=== PATIENT | female | born 1995 | race Hispanic/Latino ===

== ENCOUNTER 2017-12-11 00:29 | Emergency (ER) | payer OTHER, MEDICAID, SELFPAY ==
--- NOTE | 2017-12-11 00:32 | DI.US.S_ITS ---
PROCEDURE: US PELVIC COMPLETE INDICATIONS: Bleeding during TECHNIQUE: Real-time scanning was performed of the pelvic organs, with image documentation. Additional endovaginal scanning was necessary due to incomplete visualization of the adnexal and endometrial structures by transabdominal scanning. COMPARISON: None. FINDINGS: Transabdominal scanning: Limited scanning through the kidneys shows no hydronephrosis. No pathologic free abdominal or pelvic fluid. Endovaginal scanning: Uterus: Uterus is normal in size at 7.4 x 3.4 x 5.2 cm. echogenic material seen within the endometrial complex and small amount of fluid. No definite intrauterine is identified. No internal vascularity on color Doppler interrogation but there is peripheral flow demonstrated. Ovaries: Normal left ovary measuring 2.1 x 2.6 x 2.0 cm. Corpus luteum cyst involves the right ovary measuring 1.7 x 1.3 x 1.4 cm. IMPRESSION: 1. No definite intrauterine is identified. 2. Echogenic material noted within the endometrial complex as well as small amount of complex endometrial fluid. Although findings are likely related to blood products from a spontaneous in progress, an underlying mass cannot entirely be excluded and followup ultrasound is recommended if clinically indicated. 3. Probable corpus luteal luteal cyst on the right is present and otherwise no adnexal masses or free fluid is seen. Although there are no secondary signs to suggest ectopic, occult ectopic cannot be excluded and close clinical correlation with serial beta-hCGs and/or followup sonographic imaging is recommended. Note: These findings are concordant with the preliminary interpretation. Dictated by: Chaka ZHU Interpreted: Evin Barnett MD on 12/11/2017 at 8:48 Approved by: Evin Barnett M.D. on 12/11/2017 at 11:04
[2017-12-11 00:39] VITALS: BP 135/90; PULSE 88; RESP 18; TEMP 36.8; O2SAT 99
--- NOTE | 2017-12-11 00:54 | ED_ITS ---
HPI - General Chief complaint: OB/Uterine Contractions Stated complaint: thinks miscarriage, less than 20 weeks Time Seen by Provider: 12/11/17 00:31 Source: patient Mode of arrival: ambulatory Limitations: no limitations History of Present Illness HPI Narrative: 22-year-old who had unknown dates here for evaluation of vaginal bleeding. Patient states that she has a 9-month-old at home. She states that she has been breast-feeding. She states that approximately 4 days ago she started having vaginal bleeding. She states that she thought that it was a menstrual cycle that has been irregular since having her child 9 months ago. She states she called her provider's office who asked her to take a home test. She states that she took a test 4 days ago was negative. She states that the symptoms have continued and now starts to have some lower abdominal pain. She states that she took a test today and it was positive. Denies any urinary symptoms. Patient : Yes Related Data Previous Rx's Medication Instructions Recorded ibuprofen 600 mg PO Q6HP PRN #30 tab 02/28/17 norethindrone (contraceptive) 0.35 mg PO QDAY #3 pac 04/02/17 [Deblitane] nystatin 0 TOPICAL BID #15 gm 04/02/17 Allergies Allergy/AdvReac Type Severity Reaction Status Date / Time No Known Drug Allergies Allergy Verified 12/11/17 00:39 Review of Systems Constitutional Denies chills, Denies fever(s), Denies lethargy and Denies weakness Gastrointestinal Gastrointestinal: Reports abdominal pain, Denies constipation, Reports cramping , Denies diarrhea, Denies nausea and Denies vomiting Genitourinary Reports abnormal vaginal bleeding, Denies urinary hesitancy, Denies urinary urgency and Reports vaginal discharge Integumentary/Breasts Denies pruritus, Denies erythema, Denies rash and Denies wounds Neurologic Denies weakness PMFSH - Past Medical History Medical history: Reports non-contributory Surgical history: Reports non-contributory Patient : Yes Family history: Reports no significant family history Exam Initial Vital Signs Initial Vital Signs: Vital Signs Temperature 98.2 F 12/11/17 00:39 Pulse Rate 88 12/11/17 00:39 Respiratory Rate 18 12/11/17 00:39 Blood Pressure 135/90 H 12/11/17 00:39 Pulse Oximetry 99 12/11/17 00:39 Const General: cooperative and well developed Nutritional Appearance: well nourished Orientation: alert, awake, oriented x3 and not confused Resp Effort & Inspection: normal respiratory effort GI Inspection: normal to inspection and non-distended Palpation: soft, No firm and No guarding Back/Spine/Pelvis Back: No CVA tenderness Skin General: no rashes or lesions noted, No jaundice and No petechiae Neuro General: alert, oriented x3, gait normal and no focal motor deficits Speech: speech normal Course Orders Ordered: ED Orders 12/11/17 00:32 US pelvic complete Stat 12/11/17 00:47 ABO RH Type Stat HCG Quantitative Stat Vital Signs - 8 hr 12/11/17 00:39 Temperature 98.2 F Pulse Rate 88 Respiratory Rate 18 Blood Pressure 135/90 H Pulse Oximetry 99 MDM - OB/Uterine Contractions Lab Data Attestation: I reviewed the patient's lab results. Lab Results 12/11/17 12/11/17 Range/Units 00:47 00:47 HCG, Quant 41.19 mIU/mL Blood Type O Positive Imaging Data Pelvic ultrasound: Radiologist's impression: No intrauterine is identified. Ectopic not excluded. No adnexal mass or free fluid. Suspect collapsing cyst or corpus luteum right ovary. Each ovary exhibited appropriate vascular flow. Heterogeneous thickened endometrial echoes with suspected polypoid mass in the endometrium. Follow-up suggested. [facility] Narrative Medical decision making narrative: Patient's blood type is Rh positive. No indication for RhoGAM. Has a benign exam. HCG quant is less than the threshold for expecting to see an intrauterine . I suspect that this is because she is extremely early on in her . She states she had a negative test 4 days ago and a positive test today. No IUP was seen on the pelvic ultrasound. I had a discussion with the patient regarding this. Informed her that this could mean that she is so very early on in her that we cannot see anything on the ultrasound or could mean that she is still having a miscarriage. Informed her that she needed to contact her OB office for a follow-up and to have her hCG quant redrawn in 48 hr. She was given return precautions with regard to ectopic . She expressed understanding and agreement with plan Discharge Plan Departure Patient Disposition: Home, Self-Care Clinical Impression: , Threatened miscarriage Discharge Date/Time: 12/11/17 02:50 Instructions: DI for Threatened Activity Restrictions/Additional Instructions: I recommend that you start taking a vitamin like we discussed. I also recommend that you contact your OB provider tomorrow to discuss follow-up and repeat blood draws to trend your hormone levels. Return to the emergency department for any new symptoms, worsening symptoms, bleeding more than 4 pads an hour for 4 hr worsening pain, or any other concerning symptoms Prescriptions: No Action ibuprofen 600 MG tablet 600 mg PO Q6HP PRNQty: 30 RF: 0 norethindrone (contraceptive) [Deblitane] 0.35 MG tablet 0.35 mg PO QDAY Qty: 3 RF: 1 nystatin 15 GM cream Topical BID Qty: 15 RF: 1
[2017-12-11 01:24] LABS: HCG Quantitative /Beta subunit 41.19 mIU/mL
[2017-12-11 02:52] VITALS: BP 84/57; PULSE 67; RESP 16; TEMP 36.7; O2SAT 100
== END 2017-12-11 02:50 | disposition home or self-care (01) ==
PROVIDERS: Emergency Provider Emergency Medicine; PCP Specialist
DX: O20.0 Threatened abortion (principal)
CPT/HCPCS: 36415; 76830; 76856; 81003; 84702; 86900; 86901; 99282; 99284

== ENCOUNTER → 2017-12-13 11:20 | Outpatient (CLI) | payer OTHER, MEDICAID, SELFPAY ==
[2017-12-13 12:46] LABS: HCG Quantitative /Beta subunit 60.59 mIU/mL
== END ==
PROVIDERS: PCP Specialist; Visit Provider Specialist
DX: O20.0 Threatened abortion (principal)
CPT/HCPCS: 36415; 84702

== ENCOUNTER → 2017-12-17 11:31 | Outpatient (CLI) | payer OTHER, MEDICAID, SELFPAY ==
[2017-12-17 12:37] LABS: HCG Quantitative /Beta subunit 97.31 mIU/mL
== END ==
PROVIDERS: PCP Specialist; Visit Provider Specialist
DX: O20.0 Threatened abortion (principal)
CPT/HCPCS: 36415; 84702

== ENCOUNTER → 2017-12-24 10:01 | Outpatient (CLI) | payer OTHER, MEDICAID, SELFPAY ==
[2017-12-24 11:34] LABS: HCG Quantitative /Beta subunit 654.05 mIU/mL
== END ==
PROVIDERS: PCP Specialist; Visit Provider Specialist
DX: O20.0 Threatened abortion (principal)
CPT/HCPCS: 36415; 84702

== ENCOUNTER → 2017-12-31 09:59 | Outpatient (CLI) | payer OTHER, MEDICAID, SELFPAY ==
[2017-12-31 11:30] LABS: HCG Quantitative /Beta subunit 2605.5 mIU/mL
== END ==
PROVIDERS: PCP Specialist; Visit Provider Specialist
DX: O20.0 Threatened abortion (principal)
CPT/HCPCS: 36415; 84702

== ENCOUNTER → 2018-01-04 06:57 | Outpatient (CLI) | payer OTHER, MEDICAID, SELFPAY ==
--- NOTE | 2018-01-04 06:58 | DI.US.S_ITS ---
PROCEDURE: US OB <= 14 WEEKS FETUS INDICATIONS: DATES OUTSIDE/PRIOR DATING DATA: Last menstrual period (LMP): Unknown. LMP-based estimated date of delivery (MATT): N./A.. First dating scan (date and location): 01/04/18. Estimated date of delivery (MATT) from first dating scan: 09/02/18. TECHNIQUE: Real-time scanning was performed of the fetus and maternal pelvic organs, with image documentation. Endovaginal scanning was also performed to better visualize the fetus and maternal ovaries. COMPARISON: None. FINDINGS: Embryo: Gestational saclike fluid collection present with mean diameter of 8 mm corresponding to 5 weeks 4 days. Sac is irregular and there is a perigestational sac hematoma measuring 1.3 x 0.7 x 0.7 cm. No definite yolk sac or pole. Measurement variability in dating: +/- 4 weeks by LMP, +/- 7 days by mean sac diameter (use before 6 weeks gestation if crown-rump length not able to be measured), +/- 5 days by crown-rump length (up to 8 weeks 6 days gestation), +/- 7 days by crown-rump length (up to 13 weeks 6 days gestation). Maternal organs: Ovaries within normal limits, with complex left corpus luteal cyst measuring roughly 2.3 cm. Limited images through the kidneys demonstrate no hydronephrosis. IMPRESSION: Gestational saclike fluid collection as above with mean diameter of 8 mm corresponding to 5 weeks 4 days. If indicated repeat ultrasound can be performed in one week to assess viability. Small perigestational site bleed site. Dictated by: Chaka Monroe [facility] Interpreted: Prudence Dewitt MD on 01/04/2018 at 9:11 Approved by: Prudence Dewitt MD, PhD on 01/04/2018 at 9:28
== END ==
PROVIDERS: Family Provider Specialist; PCP Specialist; Visit Provider Specialist
DX: Z34.91 Encounter for supervision of normal pregnancy, unspecified, first trimester (principal); Z3A.01 Less than 8 weeks gestation of pregnancy
CPT/HCPCS: 76801; 76817

== ENCOUNTER → 2018-01-08 10:11 | Outpatient (CLI) | payer OTHER, MEDICAID, SELFPAY ==
[2018-01-08 11:21] LABS: HCG Quantitative /Beta subunit 6510.4 mIU/mL
== END ==
PROVIDERS: Family Provider Specialist; PCP Specialist; Visit Provider Specialist
DX: O20.9 Hemorrhage in early pregnancy, unspecified (principal)
CPT/HCPCS: 36415; 84702

== ENCOUNTER → 2018-01-14 10:15 | Outpatient (CLI) | payer OTHER, MEDICAID, SELFPAY ==
[2018-01-14 12:36] LABS: HCG Quantitative /Beta subunit 9127.9 mIU/mL
== END ==
PROVIDERS: PCP Specialist; Visit Provider Specialist
DX: O20.0 Threatened abortion (principal)
CPT/HCPCS: 36415; 84702

== ENCOUNTER 2018-01-19 02:40 | Observation (INO) | payer OTHER, MEDICAID, SELFPAY ==
[2018-01-19] VITALS (11 sets, daily range): BP systolic 84–102; BP diastolic 49–67; PULSE 88–117; RESP 13–23; TEMP 36.6–36.9; O2SAT 96–100; BMI 24.9
--- NOTE | 2018-01-19 | PATH_ITS ---
[facility] Accession Number: [id number] . 01 Material submitted: . POC . 02 Diagnosis: Products Of Conception: Products of conception identified. I/01/23/2018 . 02 Electronically signed: . Quita Iniguez MD, Pathologist NPI- [id number] . 01 Gross description: . Received in formalin, labeled the product of conception, are multiple fragments of harris red-brown tissue (9.2 x 2.8 x 0.5 cm in aggregate). Entirely submitted in cassettes A1-A4. ([id number]) /[facility] . 02 Pathologist provided ICD-10: O02.1 . 02 CPT . 462720 Performed at: 01 [facility] [address] [id number] MD Evin Monahan MD Phone: [phone] Performed at: 02 [facility] [address] [place], [place] [id number] MD Remberto Orellana MD Phone: [phone]
--- NOTE | 2018-01-19 02:47 | ED.PREGNANCY ---
HPI - General Chief complaint: Vaginal Bleeding Stated complaint: vag bleeding Time Seen by Provider: 01/19/18 02:45 Source: patient and EMS Mode of arrival: EMS Limitations: no limitations History of Present Illness HPI Narrative: 22-year-old female presents by would be EMS for evaluation of heavy vaginal bleeding. The patient is a that had a miscarriage diagnosed yesterday by her OB Gyne doctor, Dr. Fuller. She had an ultrasound confirming the diagnosis and was given the option of either medications or a D and C and the patient elected medications. She went home and at about 5 o'clock inserted for vaginal meds and by 530 she started bleeding rather heavily. She has continued to bleed through 1 pad per hour or more since 11/28. She has had 2 syncopal episodes this evening and has a forehead contusion as the result. EMS was called and on arrival found her blood pressure to be in the 80s. She was given some IV fluid and Zofran en route. MD Complaint: vaginal bleeding Onset (ago): hour(s) Pain Consistency: constant Relieving factors: none Exacerbating factors: none Associated symptoms: nausea and vaginal bleeding Vaginal discharge: none Vaginal bleeding: heavy Patient : No Related Data Previous Rx's Medication Instructions Recorded ibuprofen 600 mg PO Q6HP PRN #30 tab 02/28/17 hydrocodone 5 mg-acetaminophen 325 2 tab PO Q4H PRN #20 tab 01/18/18 mg tablet Allergies Allergy/AdvReac Type Severity Reaction Status Date / Time No Known Drug Allergies Allergy Verified 01/18/18 09:57 Review of Systems Review of Systems All systems reviewed & are unremarkable except as noted in HPI and below Constitutional Denies chills, Denies fever(s), Denies lethargy and Denies weakness Eyes Denies change in vision, Denies eye discharge, Denies irritation and Denies loss of vision ENT Ears, Nose, Mouth, and Throat: Denies change in voice, Denies neck pain and Denies sore throat Cardiovascular Denies chest pain, Denies irregular heart rhythm, Denies lightheadedness, Denies palpitations, Denies dyspnea, Denies dyspnea on exertion and Denies orthopnea Respiratory Denies cough, Denies dyspnea, Denies dyspnea on exertion and Denies wheezing Gastrointestinal Gastrointestinal: Denies abdominal pain, Denies change in bowel habits, Denies diarrhea, Denies nausea and Denies vomiting Genitourinary Reports abnormal vaginal bleeding, Denies hematuria, Denies flank pain, Denies urinary incontinence and Denies urinary urgency Musculoskeletal Denies neck pain Integumentary/Breasts Denies pruritus, Denies erythema, Denies rash and Denies wounds Neurologic Denies confusion, Denies loss of vision and Denies weakness Psychiatric Denies anxiety, Denies confusion, Denies depression, Denies homicidal ideation and Denies suicidal ideation Endocrine Denies palpitations Hematologic/Lymphatic Denies easy bruising Allergic/Immunologic Denies wheezing PMFSH - Past Medical History Medical history: Reports non-contributory Surgical history: Reports no surgical history Patient : No Psychiatric history: Reports no psych history Exam Narrative Exam Narrative: 22-year-old female in mild distress, actively bleeding, has not as evidence by blood on the ambulance sheet Initial Vital Signs Initial Vital Signs: Vital Signs Blood Pressure 100/64 01/19/18 03:00 Const General: cooperative, well developed and in distress Nutritional Appearance: well nourished Orientation: alert, awake, oriented x3 and not confused HENMT Head: normocephalic and atraumatic Ears: external ears normal and TM's normal bilaterally Nose: external nose normal and No nasal discharge Face and sinus: sinuses nontender, face symmetric, no sinus tenderness and No dry mucous membranes Mouth: oral mucosae normal and moist mucous membranes Teeth and gingiva: dentition normal Throat: tonsils normal and uvula midline Eyes General: appearance normal, both eyes and all related structures Eyelids: eyelids normal Conjunctivae: conjunctival abnormality (Pale) bilaterally Sclera: sclerae normal Pupils: PERRL EOM: EOM intact bilaterally Resp Effort & Inspection: normal respiratory effort, able to speak in complete sentences, no respiratory distress and no use of accessory muscles Auscultation: clear to auscultation bilaterally, no rales, no rhonchi and no wheezes GI Inspection: non-distended Palpation: soft, no hepatosplenomegaly, No guarding, No pulsatile mass and No tender Auscultation: normal bowel sounds Skin General: pallor and cool/cold Course Orders Ordered: ED Orders 01/19/18 02:55 ABO RH Type Stat Complete Blood Count AUTO DIFF Stat Comprehensive Metabolic Panel Stat HCG Quantitative Stat Consultations Consultation #1: Called to Dr. Fuller who will see the patient at bedside with likely D and C Time: 02:57 Vital Signs - 8 hr 01/19/18 03:00 01/19/18 03:06 01/19/18 03:07 Temperature 98.1 F Pulse Rate 88 Respiratory Rate 14 Blood Pressure 100/64 100/64 100/64 Pulse Oximetry 99 MDM - OB/Uterine Contractions Lab Data Result diagrams: 01/19/18 02:55 01/19/18 02:55 Lab Results 01/19/18 01/19/18 01/19/18 Range/Units 02:55 02:55 02:55 WBC 11.1 H (4.5-11.0) X10^3/uL RBC 3.92 L (4.0-5.2) X10^6/uL Hgb 11.3 L (12.0-16.0) g/dL Hct 33.7 L (36-46) % MCV 85.9 (80-100) fL MCH 28.9 (26-34) PG MCHC 33.6 (30-36) % RDW 14.1 (11.6-14.8) % Plt Count 338 (150-400) X10^3/uL Neut % (Auto) 81.1 H (50-75) % Lymph % (Auto) 13.9 L (25-40) % Lawrence % (Auto) 4.2 (3-14) % Eos % (Auto) 0.2 L (2-4) % Baso % (Auto) 0.6 (0-2) % Neut # (Auto) 9000 H (5201-9753) /uL Sodium 139 (137-145) mmol/L Potassium 4.0 (3.4-5.1) mmol/L Chloride 104 (98-107) mmol/L Carbon Dioxide 26 (22-32) mmol/L BUN 9 (7-17) mg/dL Creatinine 0.60 (0.52-1.04) mg/dL Estimated GFR > 60.0 (>60) mL/min BUN/Creatinine Ratio 15.0 (6-22) Glucose 121 H (70-100) mg/dL Calcium 8.5 (8.4-10.2) mg/dL Total Bilirubin 0.3 (0.2-1.3) mg/dL AST 15 (14-36) IU/L ALT 16 (9-52) IU/L Alkaline Phosphatase 83 (38-126) U/L Total Protein 6.5 (6.3-8.2) g/dL Albumin 3.8 (3.5-5.0) g/dL Globulin 2.7 (1.7-4.1) g/dL Albumin/Globulin Ratio 1.4 (1.0-2.8) Blood Type O Positive Discharge Plan Departure Patient Disposition: Admitted as Observation Clinical Impression: Excessive vaginal bleeding
--- NOTE | 2018-01-19 02:56 | PC.NURSE ---
PT states 8weeks with vaginal bleeding filling 1 pad every 45 minutes, with 2 syncopal episodes onset 1730 01/18/18 denies pain. Reports was given medication to place in vagina unknown name from to assist with spontaneous .
[2018-01-19 03:02] LABS: Add Manual Diff / Slide Review NO; Basophils Percent Auto 0.6 % (0-2); Eosinophils Percent Auto 0.2 % (2-4); Hematocrit 33.7 % (36-46); Hemoglobin 11.3 g/dL (12.0-16.0); Lymphocytes Percent Auto 13.9 % (25-40); Mean Corpuscular HGB Conc 33.6 % (30-36); Mean Corpuscular Hemoglobin 28.9 PG (26-34); Mean Corpuscular Volume 85.9 fL (80-100); Monocytes Percent Auto 4.2 % (3-14); Neutrophils Absolute Auto 9000 /uL (3000-5900); Neutrophils Percent Auto 81.1 % (50-75); Platelet Count 338 X10^3/uL (150-400); Red Blood Cell Count 3.92 X10^6/uL (4.0-5.2); Red Cell Distribution Width 14.1 % (11.6-14.8); White Blood Cell Count 11.1 X10^3/uL (4.5-11.0)
--- NOTE | 2018-01-19 03:10 | PC.NURSE ---
Pt states 3 para 2.
[2018-01-19 03:14] LABS: Alanine Aminotransferase 16 IU/L (9-52); Albumin 3.8 g/dL (3.5-5.0); Albumin Globulin Ratio 1.4 (1.0-2.8); Alkaline Phosphatase 83 U/L (38-126); Aspartate Aminotransferase 15 IU/L (14-36); Bilirubin Total 0.3 mg/dL (0.2-1.3); Blood Urea Nitrogen 9 mg/dL (7-17); Calcium 8.5 mg/dL (8.4-10.2); Carbon Dioxide 26 mmol/L (22-32); Chloride 104 mmol/L (98-107); Estimated Glomerular Filt Rate > 60.0 mL/min (>60); Globulin 2.7 g/dL (1.7-4.1); Glucose 121 mg/dL (70-100); HEMOLYSIS < 15 (0-50); Sodium 139 mmol/L (137-145); Total Protein 6.5 g/dL (6.3-8.2)
[2018-01-19 03:31] LABS: HCG Quantitative /Beta subunit 4291.6 mIU/mL
--- NOTE | 2018-01-19 03:46 | PM.PREOP ---
Pre-operative Note Interval Note Pre-op Check: Yes History & Physical exam performed today by Physician Changes: No
--- NOTE | 2018-01-19 03:47 | PM.GYNHP.1 ---
History of Present Illness Reason for admission: incomplete Narrative: Margot Navarrete is a 22 year old female who has been followed for a missed AB. She was given Cytotec to try to complete the miscarriage last night and has had heavy bleeding since then. Patient states she passed out twice so she called the ambulance. She presents to the emergency room hemorrhaging. She has not completed the AB. [facility] Social History Smoking Status: Never smoker Meds Home Medications Medication Instructions Recorded Confirmed Type ibuprofen 600 mg PO Q6HP PRN #30 tab 02/28/17 01/18/18 Rx hydrocodone 5 mg-acetaminophen 325 2 tab PO Q4H PRN #20 tab 01/18/18 Rx mg tablet Allergies Allergy/AdvReac Type Severity Reaction Status Date / Time No Known Drug Allergies Allergy Verified 01/18/18 09:57 Review of Systems Review of Systems Patient denies fevers. She is having mild cramping. She stated she had 2 episodes of syncope and hit her head. She denies any severe headache. All systems reviewed & are unremarkable except as noted in HPI and below Exam Vital Signs (past 8 hours): - 01/19/18 03:00 01/19/18 03:06 01/19/18 03:07 Temperature 98.1 F Pulse Rate 88 Respiratory Rate 14 Blood Pressure 100/64 100/64 100/64 Blood Pressure [Left Arm] Pulse Oximetry 99 01/19/18 03:30 Temperature Pulse Rate 88 Respiratory Rate 14 Blood Pressure Blood Pressure [Left Arm] 92/57 L Pulse Oximetry 96 Oxygen Delivery Method Room Air Narrative Exam Narrative: Patient's HEENT exam within normal limits. Lungs are clear to auscultation and percussion. Heart is regular rate and rhythm no S3-S4 or murmurs. Abdomen is soft, nontender. Normal external genitalia, the vagina is full of blood and was unable to visualize the cervix due to the heavy bleeding. Uterus is minimally enlarged, nontender. No adnexal masses or tenderness. Patient had a ultrasound done on 01/18/2018 that showed a gestational sac but no fetus. Objective Labs Result Diagrams: 01/19/18 02:55 01/19/18 02:55 Labs: Laboratory Results - last 24 hr 01/19/18 01/19/18 01/19/18 02:55 02:55 02:55 WBC 11.1 H RBC 3.92 L Hgb 11.3 L Hct 33.7 L MCV 85.9 MCH 28.9 MCHC 33.6 RDW 14.1 Plt Count 338 Neut % (Auto) 81.1 H Lymph % (Auto) 13.9 L [place] % (Auto) 4.2 Eos % (Auto) 0.2 L Baso % (Auto) 0.6 Neut # (Auto) 9000 H Sodium 139 Potassium 4.0 Chloride 104 Carbon Dioxide 26 BUN 9 Creatinine 0.60 Estimated GFR > 60.0 BUN/Creatinine Ratio 15.0 Glucose 121 H Calcium 8.5 Total Bilirubin 0.3 AST 15 ALT 16 Alkaline Phosphatase 83 Total Protein 6.5 Albumin 3.8 Globulin 2.7 Albumin/Globulin Ratio 1.4 HCG, Quant 4291.6 Blood Type O Positive Assessment & Plan (1) Excessive vaginal bleeding: Current visit: Yes Status: Acute (2) Incomplete miscarriage: Current visit: Yes Status: Acute Plan: Assessment/Plan Narrative: Patient with incomplete miscarriage now hemorrhaging. Plan is to perform suction D&C.
[2018-01-19] MEDS: LACTATED RINGERS 1,000 ML 42 ML IV (04:46)
[2018-01-19] MEDS: CEFAZOLIN 2 GM/100 ML FROZ.PIGGY IV (04:50)
--- NOTE | 2018-01-19 05:11 | SUR.OPER ---
Lithotomy on padded OR bed, head on pillow, arms secured on padded arm boards at <90 degrees abduction. Legs secured in padded yellow fins stirrups.
--- NOTE | 2018-01-19 05:17 | PM.OP.1 ---
Operative Date/Time/Diagnoses Date of procedure: 01/19/18 Time of procedure: 05:17 Pre-op diagnosis: Incomplete miscarriage causing hemorrhage Post-op diagnosis: same Procedure & Clinicians Procedure: Suction D&C Same procedure as scheduled: Yes Indications: Hemorrhaging from incomplete miscarriage Surgeon: Evangelina Fuller Click Yes if Unassisted: Yes Anesthesia Type: General Operative Notes Findings: Retained products of conception in the uterus Closure Type: not applicable Specimen(s): other (Uterine content) Estimated Blood Loss (mL): 50 Blood products transfused: none Procedure in detail: Patient was brought to the operating room where she was given general anesthesia. She was placed in low Yellofin stirrups and prepped and draped in usual sterile fashion. A check system was reviewed with the staff in the room prior to beginning the case. She had warming with blankets, pulsatile stockings in place and functional. 2 g Ancef were in prior to beginning the case. The bladder is drained with in-and out catheter. A single-tooth tenaculum was placed on the anterior lip of the cervix and the cervix was found to be dilated to 10. Hegar dilator. The uterus was sounded to 7 cm. A #8 Suction curette was placed in the uterus and tissue removed. Sharp curetting was performed followed by the suction curette. Bleeding slowed considerably. Tissue was sent to pathology. Patient went to recovery room in good condition. Counts of instruments and sponges were correct. Complications: none Condition: stable Disposition: same day surgery Plan for aftercare: Patient will be discharged home when stable. Follow up in 2 weeks.
[2018-01-19] MEDS: KETOROLAC 30 MG/ML VIAL IV (05:20)
--- NOTE | 2018-01-19 05:21 | P.OP_ITS ---
Operative Date/Time/Diagnoses Date of procedure: 01/19/18 Time of procedure: 05:17 Pre-op diagnosis: Incomplete miscarriage causing hemorrhage Post-op diagnosis: same Procedure & Clinicians Procedure: Suction D&C Same procedure as scheduled: Yes Indications: Hemorrhaging from incomplete miscarriage Surgeon: Evangelina Fuller Click Yes if Unassisted: Yes Anesthesia Type: General Operative Notes Findings: Retained products of conception in the uterus Closure Type: not applicable Specimen(s): other (Uterine content) Estimated Blood Loss (mL): 50 Blood products transfused: none Procedure in detail: Patient was brought to the operating room where she was given general anesthesia. She was placed in low Yellofin stirrups and prepped and draped in usual sterile fashion. A check system was reviewed with the staff in the room prior to beginning the case. She had warming with blankets, pulsatile stockings in place and functional. 2 g Ancef were in prior to beginning the case. The bladder is drained with in-and out catheter. A single- tooth tenaculum was placed on the anterior lip of the cervix and the cervix was found to be dilated to 10. Hegar dilator. The uterus was sounded to 7 cm. A # 8 Suction curette was placed in the uterus and tissue removed. Sharp curetting was performed followed by the suction curette. Bleeding slowed considerably. Tissue was sent to pathology. Patient went to recovery room in good condition. Counts of instruments and sponges were correct. Complications: none Condition: stable Disposition: same day surgery Plan for aftercare: Patient will be discharged home when stable. Follow up in 2 weeks.
--- NOTE | 2018-01-19 05:25 | SUR.PHASEI ---
Ann-Marie-pad checked with Dr. Fuller, Small amt of bleeding when MD pressed on abd.
[2018-01-19] MEDS: ONDANSETRON 4 MG/2 ML INJ IV (05:49)
--- NOTE | 2018-01-19 05:59 | SUR.PHASEII ---
Pt sat up, then stood at bedside. Denied dizziness, feeling lightheaded or increased nausea. Small to mod amt of bleeding to colin-pad. No active bleeding noted.
--- NOTE | 2018-01-19 06:02 | SUR.PHASEII ---
Pt reported nausea improved.
== END 2018-01-19 06:33 | disposition home or self-care (01) ==
LOC: ED 03:13 → AC 03:55
PROVIDERS: Admitting Provider Specialist; Emergency Provider Emergency Medicine; Family Provider Specialist; PCP Specialist; Visit Provider Specialist
PROC: (CPT 58120; principal; 2018-01-19 04:35)
DX: O02.89 Other abnormal products of conception (principal); O08.1 Delayed or excessive hemorrhage following ectopic and molar pregnancy
CPT/HCPCS: 59812; 36415; 80053; 84702; 85025; 86900; 86901; 88305; 96365; 96375; 99282; 99284; G0378; J0690; J1100; J1885; J2405; J2704; J3010

== ENCOUNTER → 2018-04-01 15:52 | Outpatient (CLI) | payer OTHER, MEDICAID, SELFPAY ==
[2018-04-01 16:31] LABS: Hematocrit 32.2 % (36-46); Hemoglobin 10.1 g/dL (12.0-16.0); Mean Corpuscular HGB Conc 31.5 % (30-36); Mean Corpuscular Hemoglobin 21.2 PG (26-34); Mean Corpuscular Volume 67.3 fL (80-100); Platelet Count 468 X10^3/uL (150-400); Red Blood Cell Count 4.78 X10^6/uL (4.0-5.2); Red Cell Distribution Width 22.1 % (11.6-14.8); White Blood Cell Count 6.7 X10^3/uL (4.5-11.0)
[2018-04-01 16:37] LABS: Reticulocyte Count, Percent 1.7 % (1.06-2.63)
[2018-04-01 17:04] LABS: Anisocytosis 2+; Microcytosis 1+; Poikilocytosis 1+
[2018-04-01 17:15] LABS: HEMOLYSIS < 15 (0-50); Iron 20 ug/dL (37-170)
[2018-04-01 17:26] LABS: Percent Iron Saturation 5 % (15-50); Total Iron Binding Capacity 421 ug/dL (265-497); Transferrin 363 mg/dL (206-381)
[2018-04-01 17:50] LABS: Ferritin 5.1 ng/mL (6.27-137)
[2018-04-01 18:21] LABS: Folate 13.3 ng/mL (2.76-20.0); Vitamin B12 644 pg/mL (239-931)
== END ==
PROVIDERS: Visit Provider Student in an Organized Health Care Education/Training Program
DX: D64.9 Anemia, unspecified (principal)
CPT/HCPCS: 36415; 82607; 82728; 82746; 83540; 83550; 85027; 85045

== ENCOUNTER → 2018-07-10 09:36 | Outpatient (CLI) | payer OTHER, MEDICAID, SELFPAY ==
[2018-07-10 10:11] LABS: Hematocrit 41.9 % (36-46); Hemoglobin 14.3 g/dL (12.0-16.0); Mean Corpuscular Hemoglobin 27.9 PG (26-34); Mean Corpuscular Volume 81.9 fL (80-100); Platelet Count 274 X10^3/uL (150-400); Red Blood Cell Count 5.12 X10^6/uL (4.0-5.2); Red Cell Distribution Width 15.9 % (11.6-14.8); White Blood Cell Count 6.1 X10^3/uL (4.5-11.0)
[2018-07-10 10:24] LABS: HEMOLYSIS < 15 (0-50); Iron 85 ug/dL (37-170)
[2018-07-10 10:35] LABS: Percent Iron Saturation 26 % (15-50); Total Iron Binding Capacity 327 ug/dL (265-497); Transferrin 270 mg/dL (206-381)
== END ==
PROVIDERS: PCP Specialist; Visit Provider Student in an Organized Health Care Education/Training Program
DX: D64.9 Anemia, unspecified (principal)
CPT/HCPCS: 36415; 83540; 83550; 85027

== ENCOUNTER → 2018-10-24 09:15 | Outpatient (CLI) | payer OTHER, MEDICAID, SELFPAY ==
[2018-10-24 09:19] LABS: WBC Urine None Seen (0-5/HPF)
[2018-10-24 09:53] LABS: Add Manual Diff / Slide Review NO; Basophils Absolute Auto 0 /uL (0-100); Basophils Percent Auto 0.5 % (0-2); Eosinophils Absolute Auto 0 /uL (0-450); Eosinophils Percent Auto 0.5 % (2-4); Hematocrit 42.9 % (36-46); Hemoglobin 14.7 g/dL (12.0-16.0); Lymphocytes Absolute Auto 1800 /uL (1100-4500); Mean Corpuscular HGB Conc 34.2 % (30-36); Monocytes Absolute Auto 400 /uL (0-900); Monocytes Percent Auto 6.2 % (3-14); Neutrophils Absolute Auto 4600 /uL (1500-7000); Neutrophils Percent Auto 66.8 % (50-75); Platelet Count 309 X10^3/uL (150-400); Red Blood Cell Count 5.05 X10^6/uL (4.0-5.2); Red Cell Distribution Width 12.9 % (11.6-14.8); White Blood Cell Count 6.8 X10^3/uL (4.5-11.0)
[2018-10-24 10:05] LABS: BUN Creatinine Ratio 13.3 (6-22); Blood Urea Nitrogen 8 mg/dL (7-17); Calcium 9.4 mg/dL (8.4-10.2); Carbon Dioxide 28 mmol/L (22-32); Chloride 102 mmol/L (98-107); Estimated Glomerular Filt Rate > 60.0 mL/min (>60); Glucose 85 mg/dL (70-100); HEMOLYSIS < 15 (0-50); Potassium 3.9 mmol/L (3.4-5.1); Sodium 139 mmol/L (137-145)
[2018-10-24 14:09] LABS: Appearance Urine UA CLEAR; Bilirubin Urine UA NEGATIVE (NEGATIVE); Color Urine UA YELLOW; Glucose Urine UA NEGATIVE (Negative); Ketones Urine UA NEGATIVE (NEGATIVE); Leukocyte Esterase Urine UA NEGATIVE (NEGATIVE); Nitrite Urine UA NEGATIVE (Negative); Occult Blood Urine UA 1+ (Negative); Protein Urine UA NEGATIVE (Negative); Specific Gravity Urine UA <=1.005 (1.000-1.035); Urobilinogen Urine UA 0.2 E.U./dL (0.2)
[2018-10-24 14:49] LABS: Bacteria Urine Occasional (0-1); RBC Urine 0-1/HPF (0-5/HPF); Squamous Epithelial Cell Urine 0-1 /HPF (0-5/HPF)
[2018-10-24 14:50] LABS: Culture Indicated Urine Cult Not Indicated
== END ==
PROVIDERS: PCP Student in an Organized Health Care Education/Training Program; Visit Provider Student in an Organized Health Care Education/Training Program
DX: D64.9 Anemia, unspecified (principal); R11.0 Nausea; R30.0 Dysuria
CPT/HCPCS: 36415; 80048; 81001; 85025

== ENCOUNTER 2018-11-23 21:06 | Emergency (ER) | payer OTHER, MEDICAID, SELFPAY ==
[2018-11-23 21:09] VITALS: BP 130/99; PULSE 68; RESP 18; TEMP 36.6; O2SAT 99; BMI 25.4
--- NOTE | 2018-11-23 21:40 | DI.US.S_ITS ---
PROCEDURE: US PELVIC COMPLETE INDICATIONS: BLEEDING, PAIN TECHNIQUE: Real-time scanning was performed of the pelvic organs, with image documentation. Additional endovaginal scanning was necessary due to incomplete visualization of the adnexal and endometrial structures by transabdominal scanning. COMPARISON: [facility], , US PELVIC COMPLETE, 12/11/2017, 1:15. [facility], , US PELVIC COMPLETE, 01/18/2018, 10:11. FINDINGS: Transabdominal scanning: Limited scanning through the kidneys shows no hydronephrosis. No pathologic free abdominal or pelvic fluid. Endovaginal scanning: Uterus: Uterus is normal in size at 8.5 x 3.1 x 4.7 cm. The endometrium measures 4 mm in combined thickness. Ovaries: The right ovary measures 3.1 x 1.3 x 3.1 cm. The left ovary measures 1.5 x 1.1 x 1.7 cm. The ovaries have a normal sonographic appearance, with note made of physiologic appearing cysts. No adnexal masses are seen. IMPRESSION: Normal pelvic ultrasound. Note: No significant discrepancy from the preliminary report. Dictated by: Bib Sommer M.D. on 11/24/2018 at 7:36 Approved by: Bib Sommer M.D. on 11/24/2018 at 7:37
--- NOTE | 2018-11-23 21:45 | ED.FEMALEGU ---
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 At times she has bleeding heavy, through a pad per hour but that is only sporadically and not currently. She denies any vaginal discharge. She denies dysuria, frequency or urgency. She denies fever or chills. MD Complaint: vaginal bleeding Onset (ago): week(s) Location: suprapubic Severity: moderate Quality: Aching Duration: intermittent Relieving factors: none Exacerbating factors: none Vaginal discharge: dark blood and blood clots Patient : No Associated symptoms: denies other symptoms Related Data : 3 Para: 2 Home Medications Medication Instructions Recorded Confirmed No Known Home Medications 11/07/18 11/07/18 Allergies Allergy/AdvReac Type Severity Reaction Status Date / Time No Known Drug Allergies Allergy Verified 11/07/18 14:39 Review of Systems Constitutional Denies chills, Denies fever(s), Denies lethargy and Denies weakness Eyes Denies change in vision, Denies eye discharge, Denies irritation and Denies loss of vision ENT Ears, Nose, Mouth, and Throat: Denies change in voice, Denies neck pain and Denies sore throat Cardiovascular Denies chest pain, Denies irregular heart rhythm, Denies lightheadedness, Denies palpitations, Denies dyspnea, Denies dyspnea on exertion and Denies orthopnea Respiratory Denies cough, Denies dyspnea, Denies dyspnea on exertion and Denies wheezing Gastrointestinal Gastrointestinal: Denies abdominal pain, Denies change in bowel habits, Denies diarrhea, Denies nausea and Denies vomiting Genitourinary Reports abnormal vaginal bleeding, Denies hematuria, Denies flank pain, Denies urinary incontinence and Denies urinary urgency Musculoskeletal Denies neck pain Integumentary/Breasts Denies pruritus, Denies erythema, Denies rash and Denies wounds Neurologic Denies confusion, Denies loss of vision and Denies weakness Psychiatric Denies anxiety, Denies confusion, Denies depression, Denies homicidal ideation and Denies suicidal ideation Endocrine Denies palpitations Hematologic/Lymphatic Denies easy bruising Allergic/Immunologic Denies wheezing PFSH Medical History No pertinent past medical history (Resolved) Surgical History Hx of dilation and curettage (Resolved ~12/2017) Social History Smoking Status: Never smoker alcohol intake: never substance use type: does not use Social History Smoking Status: Never smoker alcohol intake: never substance use type: does not use Exam Narrative Exam Narrative: GENERAL: 23-year-old female in no obvious distress, resting comfortably HEAD: Atraumatic. Normocephalic. No temporal or scalp tenderness. EYES: Pupils equal round and reactive. Extraocular motions intact. No scleral icterus. No injection or drainage. ENT: Nose without bleeding, purulent drainage or septal hematoma. Throat without erythema, tonsillar hypertrophy or exudate. Uvula midline. Airway patent. NECK: Trachea midline. No JVD or lymphadenopathy. Supple, nontender, no meningeal signs. CARDIOVASCULAR: Regular rate and rhythm without murmurs, gallops, or rubs. RESPIRATORY: Clear to auscultation. Breath sounds equal bilaterally. No wheezes, rales, or rhonchi. GASTROINTESTINAL: Abdomen soft, mild suprapubic tenderness, nondistended. No hepato-splenomegaly, or palpable masses. No guarding. EXTREMITIES: No clubbing, cyanosis, or edema. No joint tenderness, effusion, or edema noted. BACK: Nontender without deformity or crepitance. No flank tenderness. NEURO: AOx3. SKIN: No rash or erythema. Initial Vital Signs Initial Vital Signs: Vital Signs Temperature 97.8 F 11/23/18 21:09 Pulse Rate 68 11/23/18 21:09 Respiratory Rate 18 11/23/18 21:09 Blood Pressure 130/99 H 11/23/18 21:09 Pulse Oximetry 99 11/23/18 21:09 Course Orders Ordered: ED Orders 11/23/18 21:33 Basic Metabolic Panel Stat Complete Blood Count AUTO DIFF Stat Type and Screen Stat 11/23/18 21:40 US pelvic complete Stat 11/23/18 22:00 HCG Quantitative Stat Vital Signs - 8 hr 11/23/18 21:09 11/23/18 22:38 11/23/18 23:40 Temperature 97.8 F Pulse Rate 68 69 65 Respiratory Rate 18 16 16 Blood Pressure 130/99 H 106/77 Blood Pressure [Left Arm] 113/74 Pulse Oximetry 99 100 98 MDM - Female Genitourinary Lab Data Result diagrams: 11/23/18 21:33 11/23/18 21:33 Lab Results 11/23/18 11/23/18 11/23/18 Range/Units 21:33 21:33 21:33 WBC 7.0 (4.5-11.0) X10^3/uL RBC 4.95 (4.0-5.2) X10^6/uL Hgb 14.4 (12.0-16.0) g/dL Hct 42.3 (36-46) % MCV 85.4 (80-100) fL MCH 29.0 (26-34) PG MCHC 34.0 (30-36) % RDW 13.0 (11.6-14.8) % Plt Count 328 (150-400) X10^3/uL Neut % (Auto) 49.8 L (50-75) % Lymph % (Auto) 40.8 H (25-40) % [place] % (Auto) 7.4 (3-14) % Eos % (Auto) 1.3 L (2-4) % Baso % (Auto) 0.7 (0-2) % Neut # (Auto) 3500 (0449-6402) /uL Lymph # (Auto) 2800 (1519-5540) /uL [place] # (Auto) 500 (0-900) /uL Eos # (Auto) 100 (0-450) /uL Baso # (Auto) 0 (0-100) /uL Sodium 140 (137-145) mmol/L Potassium 3.8 (3.4-5.1) mmol/L Chloride 102 (98-107) mmol/L Carbon Dioxide 29 (22-32) mmol/L BUN 8 (7-17) mg/dL Creatinine 0.70 (0.52-1.04) mg/dL Estimated GFR > 60.0 (>60) mL/min BUN/Creatinine Ratio 11.4 (6-22) Glucose 87 (70-100) mg/dL Calcium 9.4 (8.4-10.2) mg/dL HCG, Quant mIU/mL Blood Type O Positive Antibody Screen Negative 11/23/18 Range/Units 22:00 WBC (4.5-11.0) X10^3/uL RBC (4.0-5.2) X10^6/uL Hgb (12.0-16.0) g/dL Hct (36-46) % MCV (80-100) fL MCH (26-34) PG MCHC (30-36) % RDW (11.6-14.8) % Plt Count (150-400) X10^3/uL Neut % (Auto) (50-75) % Lymph % (Auto) (25-40) % [place] % (Auto) (3-14) % Eos % (Auto) (2-4) % Baso % (Auto) (0-2) % Neut # (Auto) (2492-1334) /uL Lymph # (Auto) (2841-2278) /uL [place] # (Auto) (0-900) /uL Eos # (Auto) (0-450) /uL Baso # (Auto) (0-100) /uL Sodium (137-145) mmol/L Potassium (3.4-5.1) mmol/L Chloride (98-107) mmol/L Carbon Dioxide (22-32) mmol/L BUN (7-17) mg/dL Creatinine (0.52-1.04) mg/dL Estimated GFR (>60) mL/min BUN/Creatinine Ratio (6-22) Glucose (70-100) mg/dL Calcium (8.4-10.2) mg/dL HCG, Quant < 2.39 mIU/mL Blood Type Antibody Screen Point of Care Testing Test Results Negative Urine Dip Bedside Urine Glucose Negative Bedside Urine Bilirubin - Negative Bedside Urine Ketone - Negative Urine Specific [place] 1.010 Bedside Urine Occult Blood +++ Bedside Urine pH 8.0 Bedside Urine Protein - Negative Bedside Urine Urobilinogen - Negative Bedside Urine Nitrite - Negative Bedside Urine Leukocytes - Negative Esterase Imaging Data US - abdomen: Radiologist's impression: No acute disease in pelvis MDM Narrative Medical decision making narrative: Multiple etiologies for patient's symptoms considered including: [Ovarian cyst versus hormonal fluctuation versus missed versus other] Patient's symptoms improved or duration of stay with above-stated therapies. Findings and discharge diagnosis discussed with patient/family followed by verbalization of understanding Return precautions discussed with patient/family whom verbalize understanding. Discharge Plan Departure Patient Disposition: Home Clinical Impression: Abnormal vaginal bleeding Discharge Date/Time: 11/23/18 23:40 Interventions: ED Discharge Assessment Last Done: 11/23/18 23:40 Instructions: DI for Vaginal Bleeding Activity Restrictions/Additional Instructions: *You have been diagnosed with [ovarian cyst, abnormal vaginal bleeding] *What to do: * continue to take medications as directed *Follow up with your primary care provider in 2-3 days, call for an appointment. Let them know you were seen in the Emergency Department and that we ask that you be seen in follow up *Return to ER if you should have any new, worsening or concerning symptoms, such as [bleeding through more than 1 pad per hour for multiple hours, dizziness, lightheadedness, increased pain, fever or shaking chills] Prescriptions: No Action No Known Home Medications RF: 0 Referrals: Sammy Madrid MD [Primary Care Provider] - Evangelina Fuller MD [Physician] -
[2018-11-23 21:48] LABS: Add Manual Diff / Slide Review NO; Basophils Absolute Auto 0 /uL (0-100); Basophils Percent Auto 0.7 % (0-2); Eosinophils Absolute Auto 100 /uL (0-450); Eosinophils Percent Auto 1.3 % (2-4); Hematocrit 42.3 % (36-46); Hemoglobin 14.4 g/dL (12.0-16.0); Lymphocytes Absolute Auto 2800 /uL (1100-4500); Lymphocytes Percent Auto 40.8 % (25-40); Mean Corpuscular Volume 85.4 fL (80-100); Monocytes Absolute Auto 500 /uL (0-900); Monocytes Percent Auto 7.4 % (3-14); Neutrophils Absolute Auto 3500 /uL (1500-7000); Neutrophils Percent Auto 49.8 % (50-75); Platelet Count 328 X10^3/uL (150-400); Red Blood Cell Count 4.95 X10^6/uL (4.0-5.2)
[2018-11-23 21:53] LABS: BUN Creatinine Ratio 11.4 (6-22); Blood Urea Nitrogen 8 mg/dL (7-17); Calcium 9.4 mg/dL (8.4-10.2); Carbon Dioxide 29 mmol/L (22-32); Chloride 102 mmol/L (98-107); Estimated Glomerular Filt Rate > 60.0 mL/min (>60); Glucose 87 mg/dL (70-100); HEMOLYSIS < 15 (0-50); Potassium 3.8 mmol/L (3.4-5.1); Sodium 140 mmol/L (137-145)
[2018-11-23 22:38] VITALS: BP 113/74; PULSE 69; RESP 16; O2SAT 100
[2018-11-23 23:02] LABS: HCG Quantitative /Beta subunit < 2.39 mIU/mL
[2018-11-23 23:40] VITALS: BP 106/77; PULSE 65; RESP 16; O2SAT 98
--- NOTE | 2018-11-24 02:45 | ED_ITS ---
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 At times she has bleeding heavy, through a pad per hour but that is only sporadically and not currently. She denies any vaginal discharge. She denies dysuria, frequency or urgency. She denies fever or chills. MD Complaint: vaginal bleeding Onset (ago): week(s) Location: suprapubic Severity: moderate Quality: Aching Duration: intermittent Relieving factors: none Exacerbating factors: none Vaginal discharge: dark blood and blood clots Patient : No Associated symptoms: denies other symptoms Related Data : 3 Para: 2 Home Medications Medication Instructions Recorded Confirmed No Known Home Medications 11/07/18 11/07/18 Allergies Allergy/AdvReac Type Severity Reaction Status Date / Time No Known Drug Allergies Allergy Verified 11/07/18 14:39 Review of Systems Constitutional Denies chills, Denies fever(s), Denies lethargy and Denies weakness Eyes Denies change in vision, Denies eye discharge, Denies irritation and Denies loss of vision ENT Ears, Nose, Mouth, and Throat: Denies change in voice, Denies neck pain and Denies sore throat Cardiovascular Denies chest pain, Denies irregular heart rhythm, Denies lightheadedness, Denies palpitations, Denies dyspnea, Denies dyspnea on exertion and Denies orthopnea Respiratory Denies cough, Denies dyspnea, Denies dyspnea on exertion and Denies wheezing Gastrointestinal Gastrointestinal: Denies abdominal pain, Denies change in bowel habits, Denies diarrhea, Denies nausea and Denies vomiting Genitourinary Reports abnormal vaginal bleeding, Denies hematuria, Denies flank pain, Denies urinary incontinence and Denies urinary urgency Musculoskeletal Denies neck pain Integumentary/Breasts Denies pruritus, Denies erythema, Denies rash and Denies wounds Neurologic Denies confusion, Denies loss of vision and Denies weakness Psychiatric Denies anxiety, Denies confusion, Denies depression, Denies homicidal ideation and Denies suicidal ideation Endocrine Denies palpitations Hematologic/Lymphatic Denies easy bruising Allergic/Immunologic Denies wheezing PFSH Medical History No pertinent past medical history (Resolved) Surgical History Hx of dilation and curettage (Resolved ~12/2017) Social History Smoking Status: Never smoker alcohol intake: never substance use type: does not use Social History Smoking Status: Never smoker alcohol intake: never substance use type: does not use Exam Narrative Exam Narrative: GENERAL: 23-year-old female in no obvious distress, resting comfortably HEAD: Atraumatic. Normocephalic. No temporal or scalp tenderness. EYES: Pupils equal round and reactive. Extraocular motions intact. No scleral icterus. No injection or drainage. ENT: Nose without bleeding, purulent drainage or septal hematoma. Throat without erythema, tonsillar hypertrophy or exudate. Uvula midline. Airway patent. NECK: Trachea midline. No JVD or lymphadenopathy. Supple, nontender, no meninge al signs. CARDIOVASCULAR: Regular rate and rhythm without murmurs, gallops, or rubs. RESPIRATORY: Clear to auscultation. Breath sounds equal bilaterally. No wheezes, rales, or rhonchi. GASTROINTESTINAL: Abdomen soft, mild suprapubic tenderness, nondistended. No hepato-splenomegaly, or palpable masses. No guarding. EXTREMITIES: No clubbing, cyanosis, or edema. No joint tenderness, effusion, or edema noted. BACK: Nontender without deformity or crepitance. No flank tenderness. NEURO: AOx3. SKIN: No rash or erythema. Initial Vital Signs Initial Vital Signs: Vital Signs Temperature 97.8 F 11/23/18 21:09 Pulse Rate 68 11/23/18 21:09 Respiratory Rate 18 11/23/18 21:09 Blood Pressure 130/99 H 11/23/18 21:09 Pulse Oximetry 99 11/23/18 21:09 Course Orders Ordered: ED Orders 11/23/18 21:33 Basic Metabolic Panel Stat Complete Blood Count AUTO DIFF Stat Type and Screen Stat 11/23/18 21:40 US pelvic complete Stat 11/23/18 22:00 HCG Quantitative Stat Vital Signs - 8 hr 11/23/18 21:09 11/23/18 22:38 11/23/18 23:40 Temperature 97.8 F Pulse Rate 68 69 65 Respiratory Rate 18 16 16 Blood Pressure 130/99 H 106/77 Blood Pressure [Left Arm] 113/74 Pulse Oximetry 99 100 98 MDM - Female Genitourinary Lab Data Result diagrams: 11/23/18 21:33 11/23/18 21:33 Lab Results 11/23/18 11/23/18 11/23/18 Range/Units 21:33 21:33 21:33 WBC 7.0 (4.5-11.0) X10^3/uL RBC 4.95 (4.0-5.2) X10^6/uL Hgb 14.4 (12.0-16.0) g/dL Hct 42.3 (36-46) % MCV 85.4 (80-100) fL MCH 29.0 (26-34) PG MCHC 34.0 (30-36) % RDW 13.0 (11.6-14.8) % Plt Count 328 (150-400) X10^3/uL Neut % (Auto) 49.8 L (50-75) % Lymph % (Auto) 40.8 H (25-40) % [place] % (Auto) 7.4 (3-14) % Eos % (Auto) 1.3 L (2-4) % Baso % (Auto) 0.7 (0-2) % Neut # (Auto) 3500 (1069-5537) /uL Lymph # (Auto) 2800 (2796-9925) /uL [place] # (Auto) 500 (0-900) /uL Eos # (Auto) 100 (0-450) /uL Baso # (Auto) 0 (0-100) /uL Sodium 140 (137-145) mmol/L Potassium 3.8 (3.4-5.1) mmol/L Chloride 102 (98-107) mmol/L Carbon Dioxide 29 (22-32) mmol/L BUN 8 (7-17) mg/dL Creatinine 0.70 (0.52-1.04) mg/dL Estimated GFR > 60.0 (>60) mL/min BUN/Creatinine Ratio 11.4 (6-22) Glucose 87 (70-100) mg/dL Calcium 9.4 (8.4-10.2) mg/dL HCG, Quant mIU/mL Blood Type O Positive Antibody Screen Negative 11/23/18 Range/Units 22:00 WBC (4.5-11.0) X10^3/uL RBC (4.0-5.2) X10^6/uL Hgb (12.0-16.0) g/dL Hct (36-46) % MCV (80-100) fL MCH (26-34) PG MCHC (30-36) % RDW (11.6-14.8) % Plt Count (150-400) X10^3/uL Neut % (Auto) (50-75) % Lymph % (Auto) (25-40) % [place] % (Auto) (3-14) % Eos % (Auto) (2-4) % Baso % (Auto) (0-2) % Neut # (Auto) (8466-0779) /uL Lymph # (Auto) (8077-5735) /uL [place] # (Auto) (0-900) /uL Eos # (Auto) (0-450) /uL Baso # (Auto) (0-100) /uL Sodium (137-145) mmol/L Potassium (3.4-5.1) mmol/L Chloride (98-107) mmol/L Carbon Dioxide (22-32) mmol/L BUN (7-17) mg/dL Creatinine (0.52-1.04) mg/dL Estimated GFR (>60) mL/min BUN/Creatinine Ratio (6-22) Glucose (70-100) mg/dL Calcium (8.4-10.2) mg/dL HCG, Quant < 2.39 mIU/mL Blood Type Antibody Screen Point of Care Testing Test Results Negative Urine Dip Bedside Urine Glucose Negative Bedside Urine Bilirubin - Negative Bedside Urine Ketone - Negative Urine Specific [place] 1.010 Bedside Urine Occult Blood +++ Bedside Urine pH 8.0 Bedside Urine Protein - Negative Bedside Urine Urobilinogen - Negative Bedside Urine Nitrite - Negative Bedside Urine Leukocytes - Negative Esterase Imaging Data US - abdomen: Radiologist's impression: No acute disease in pelvis MDM Narrative Medical decision making narrative: Multiple etiologies for patient's symptoms considered including: [Ovarian cyst versus hormonal fluctuation versus missed versus other] Patient's symptoms improved or duration of stay with above-stated therapies. Findings and discharge diagnosis discussed with patient/family followed by verbalization of understanding Return precautions discussed with patient/family whom verbalize understanding. Discharge Plan Departure Patient Disposition: Home Clinical Impression: Abnormal vaginal bleeding Discharge Date/Time: 11/23/18 23:40 Interventions: ED Discharge Assessment Last Done: 11/23/18 23:40 Instructions: DI for Vaginal Bleeding Activity Restrictions/Additional Instructions: *You have been diagnosed with [ovarian cyst, abnormal vaginal bleeding] *What to do: * continue to take medications as directed *Follow up with your primary care provider in 2-3 days, call for an appointment. Let them know you were seen in the Emergency Department and that we ask that you be seen in follow up *Return to ER if you should have any new, worsening or concerning symptoms, such as [bleeding through more than 1 pad per hour for multiple hours, dizzine ss, lightheadedness, increased pain, fever or shaking chills] Prescriptions: No Action No Known Home Medications RF: 0 Referrals: Sammy Madrid MD [Primary Care Provider] - Evangelina Fuller MD [Physician] -
== END 2018-11-23 23:40 | disposition home or self-care (01) ==
PROVIDERS: Emergency Provider Emergency Medicine; PCP Student in an Organized Health Care Education/Training Program
DX: N93.9 Abnormal uterine and vaginal bleeding, unspecified (principal)
CPT/HCPCS: 36591; 76830; 76856; 80048; 81003; 81025; 84702; 85025; 86850; 86900; 86901; 99283; 99284

== ENCOUNTER → 2019-03-10 14:58 | Outpatient (CLI) | payer OTHER, MEDICAID, SELFPAY ==
[2019-03-10 15:25] LABS: Hematocrit 41.4 % (36-46); Mean Corpuscular HGB Conc 33.8 % (30-36); Mean Corpuscular Hemoglobin 29.6 PG (26-34); Mean Corpuscular Volume 87.5 fL (80-100); Platelet Count 382 X10^3/uL (150-400); Red Blood Cell Count 4.73 X10^6/uL (4.0-5.2); White Blood Cell Count 9.1 X10^3/uL (4.5-11.0)
[2019-03-10 16:14] LABS: TSH w/ Reflex to FT4 1.64 uIU/mL (0.47-4.68)
== END ==
PROVIDERS: PCP Student in an Organized Health Care Education/Training Program; Visit Provider Registered Nurse
DX: R53.83 Other fatigue (principal)
CPT/HCPCS: 36415; 84443; 85027

== ENCOUNTER 2019-04-12 16:21 | Emergency (ER) | payer OTHER, MEDICAID, SELFPAY ==
[2019-04-12 16:33] VITALS: BP 123/83; PULSE 67; RESP 16; TEMP 36.8; O2SAT 100; BMI 24.5
--- NOTE | 2019-04-12 16:36 | ED.NAVMDI ---
HPI - Nausea/Vomiting/Diarrhea <MICHELET Sánchez - Last Filed: 04/12/19 19:58> General Chief complaint: Nausea/Vomiting/Diarrhea Stated complaint: vomiting all day, saw blood in vomit Time Seen by Provider: 04/12/19 16:24 Source: patient Mode of arrival: Ambulatory Limitations: no limitations History of Present Illness HPI Narrative: The patient is a 23-year-old female nonsmoker with history of incomplete miscarriage who presents with a chief complaint of nausea and vomiting today. She states that she has vomited at least 8 times today and is unable to keep down fluids. She states she had diarrhea this morning. She initially thought it might be related to having some drinks out last night, but states that she did not drink enough alcohol to cause such a bad hangover. She denies any fevers. She denies any abdominal pain. She denies any sore throat, ear pain, muscle aches or chills, denies any dysuria urgency or frequency. She states she is too dehydrated to give a urine sample initially. She states that her vomit has become just water. She states she keeps drinking water in order to feel better and then vomits it up. Related Data Previous Rx's Medication Instructions Recorded norethindrone 1 mg-ethinyl 1 tab PO DAILY #140 tab 12/24/18 estradiol 20 mcg (21)-iron 75 mg (7) tablet ondansetron 4 mg PO Q6H PRN #14 tab 04/12/19 Allergies Allergy/AdvReac Type Severity Reaction Status Date / Time No Known Drug Allergies Allergy Verified 01/16/19 11:46 Review of Systems <MICHELET Sánchez - Last Filed: 04/12/19 19:58> Review of Systems Narrative: GENERAL: Denies chills, fatigue, malaise, fever, sweats. HEENT: Denies sinus pain, ear pain, sore throat, difficulty swallowing, dizziness. RESPIRATORY: Denies dyspnea, cough, wheezing, hemoptysis, sputum. CARDIOVASCULAR: Denies chest pain, palpitations, orthopnea, edema, GASTROINTESTINAL: See HPI : Denies dysuria, frequency, incontinence, hematuria, urinary retention. MUSCULOSKELETAL: denies weakness, joint pain, or bony pain SKIN: Denies rash, skin lesions, or other NEUROLOGIC: Denies weakness, headache, numbness, change in speech, confusion, seizures, incoordination. PSYCHIATRIC: No concerning psychosocial issues. 12 point review of systems is negative except for those stated above Patient History <ELIZABETH Sánchez - Last Filed: 04/12/19 19:58> Medical/Surgical History Medical History No pertinent past medical history (Resolved) Vaginal delivery (Acute) Surgical History Hx of dilation and curettage (Resolved ~12/2017) Social History Smoking Status: Never smoker alcohol intake: never substance use type: does not use Family/Social History Social History Smoking Status: Never smoker alcohol intake: never substance use type: does not use alcohol intake frequency: a few times a week Substance Use Type: does not use Exam <ELIZABETH Sánchez - Last Filed: 04/12/19 19:58> Narrative Exam Narrative: GENERAL: This is a well-nourished, well-developed patient, in no acute distress HEAD: Atraumatic. Normocephalic. No temporal or scalp tenderness. EYES: Pupils equal round and reactive. Extraocular motions intact. No scleral icterus. No injection or drainage. ENT: Nose without bleeding, purulent drainage or septal hematoma. Throat without erythema, tonsillar hypertrophy or exudate. Uvula midline. Airway patent. NECK: Trachea midline. No JVD or lymphadenopathy. Supple, nontender, no meningeal signs. CARDIOVASCULAR: Regular rate and rhythm without murmurs, gallops, or rubs. RESPIRATORY: Clear to auscultation. Breath sounds equal bilaterally. No wheezes, rales, or rhonchi. GASTROINTESTINAL: Abdomen soft, non-tender, nondistended. No hepato-splenomegaly, or palpable masses. No guarding. Active bowel sounds all 4 quadrants. EXTREMITIES: No clubbing, cyanosis, or edema. No joint tenderness, effusion, or edema noted. BACK: Nontender without deformity or crepitance. No flank tenderness. NEURO: AOx3. SKIN: No rash or erythema. Initial Vital Signs Initial Vital Signs: Vital Signs Temperature 98.2 F 04/12/19 16:33 Pulse Rate 67 04/12/19 16:33 Respiratory Rate 16 04/12/19 16:33 Blood Pressure 123/83 04/12/19 16:33 Pulse Oximetry 100 04/12/19 16:33 <Davide Collado DO - Last Filed: 04/13/19 07:02> Initial Vital Signs Initial Vital Signs: Vital Signs Temperature 98.2 F 04/12/19 16:33 Pulse Rate 67 04/12/19 16:33 Respiratory Rate 16 04/12/19 16:33 Blood Pressure 123/83 04/12/19 16:33 Pulse Oximetry 100 04/12/19 16:33 Course <ELIZABETH Sánchez - Last Filed: 04/12/19 19:58> Orders Ordered: Discontinued Medications Sodium Chloride (Normal Saline 0.9%) 1,000 mls @ 1,000 mls/hr IV BOLUS ONE Stop: 04/12/19 17:31 Last Infusion: 04/12/19 18:00 Dose: 0 mls/hr Documented by: Admin: 04/12/19 17:03 Dose: 1,000 mls/hr Documented by: CARYN Sodium Chloride (Normal Saline 0.9%) 1,000 mls @ 1,000 mls/hr IV BOLUS ONE Stop: 04/12/19 18:38 Last Infusion: 04/12/19 19:05 Dose: 0 mls/hr Documented by: Admin: 04/12/19 18:00 Dose: 1,000 mls/hr Documented by: CARYN Ondansetron HCl (Zofran) 4 mg IV NOW ONE Stop: 04/12/19 16:33 Last Admin: 04/12/19 17:03 Dose: 4 mg Documented by: CARYN Ondansetron HCl (Zofran) 4 mg IV NOW ONE Stop: 04/12/19 17:40 Last Admin: 04/12/19 18:00 Dose: 4 mg Documented by: CARYN Ondansetron HCl (Zofran Odt Prepack) 1 bottle MISC SEEINSTR ONE Stop: 04/12/19 18:34 Last Admin: 04/12/19 19:05 Dose: 1 bottle Documented by: CARYN Vital Signs Vital signs: Vital Signs - 8 hr 04/12/19 16:33 04/12/19 17:16 04/12/19 18:02 Temperature 98.2 F Pulse Rate 67 67 71 Respiratory Rate 16 Blood Pressure 123/83 Blood Pressure [Left Arm] 98/61 103/66 Pulse Oximetry 100 99 100 04/12/19 18:30 04/12/19 19:13 04/12/19 19:14 Temperature Pulse Rate 78 72 72 Respiratory Rate 18 18 18 Blood Pressure 113/93 H Blood Pressure [Left Arm] 101/63 113/93 H Pulse Oximetry 100 100 100 <Davide Collado DO - Last Filed: 04/13/19 07:02> Orders Ordered: Discontinued Medications Sodium Chloride (Normal Saline 0.9%) 1,000 mls @ 1,000 mls/hr IV BOLUS ONE Stop: 04/12/19 17:31 Last Infusion: 04/12/19 18:00 Dose: 0 mls/hr Documented by: Admin: 04/12/19 17:03 Dose: 1,000 mls/hr Documented by: CARYN Sodium Chloride (Normal Saline 0.9%) 1,000 mls @ 1,000 mls/hr IV BOLUS ONE Stop: 04/12/19 18:38 Last Infusion: 04/12/19 19:05 Dose: 0 mls/hr Documented by: Admin: 04/12/19 18:00 Dose: 1,000 mls/hr Documented by: CARYN Ondansetron HCl (Zofran) 4 mg IV NOW ONE Stop: 04/12/19 16:33 Last Admin: 04/12/19 17:03 Dose: 4 mg Documented by: CARYN Ondansetron HCl (Zofran) 4 mg IV NOW ONE Stop: 04/12/19 17:40 Last Admin: 04/12/19 18:00 Dose: 4 mg Documented by: CARYN Ondansetron HCl (Zofran Odt Prepack) 1 bottle MISC SEEINSTR ONE Stop: 04/12/19 18:34 Last Admin: 04/12/19 19:05 Dose: 1 bottle Documented by: CARYN Vital Signs Vital signs: Vital Signs - 8 hr 04/12/19 16:33 04/12/19 17:16 04/12/19 18:02 Temperature 98.2 F Pulse Rate 67 67 71 Respiratory Rate 16 Blood Pressure 123/83 Blood Pressure [Left Arm] 98/61 103/66 Pulse Oximetry 100 99 100 04/12/19 18:30 04/12/19 19:13 04/12/19 19:14 Temperature Pulse Rate 78 72 72 Respiratory Rate 18 18 18 Blood Pressure 113/93 H Blood Pressure [Left Arm] 101/63 113/93 H Pulse Oximetry 100 100 100 MDM - Nausea/Vomiting/Diarrhea <ERIC Sánchez- - Last Filed: 04/12/19 19:58> Differential Diagnosis Differential diagnosis: Likely traveler's diarrhea, food poisoning, gastroenteritis, clostridium difficile infection and drug-induced nausea and vomiting Lab Data Result diagrams: 04/12/19 16:58 04/12/19 16:58 Labs: Lab Results 04/12/19 04/12/19 04/12/19 Range/Units 16:58 16:58 17:16 WBC 10.0 (4.5-11.0) X10^3/uL RBC 4.73 (4.0-5.2) X10^6/uL Hgb 14.0 (12.0-16.0) g/dL Hct 40.7 (36-46) % MCV 86.1 (80-100) fL MCH 29.6 (26-34) PG MCHC 34.4 (30-36) % RDW 13.1 (11.6-14.8) % Plt Count 345 (150-400) X10^3/uL Neut % (Auto) 75.7 H (50-75) % Lymph % (Auto) 19.1 L (25-40) % [place] % (Auto) 4.8 (3-14) % Eos % (Auto) 0.0 L (2-4) % Baso % (Auto) 0.4 (0-2) % Neut # (Auto) 7600 H (5944-0466) /uL Lymph # (Auto) 1900 (8100-1935) /uL [place] # (Auto) 500 (0-900) /uL Eos # (Auto) 0 (0-450) /uL Baso # (Auto) 0 (0-100) /uL Sodium 139 (137-145) mmol/L Potassium 3.8 (3.4-5.1) mmol/L Chloride 102 (98-107) mmol/L Carbon Dioxide 26 (22-32) mmol/L BUN 7 (7-17) mg/dL Creatinine 0.50 L (0.52-1.04) mg/dL Estimated GFR > 60.0 (>60) mL/min BUN/Creatinine Ratio 14.0 (6-22) Glucose 83 (70-100) mg/dL Calcium 9.4 (8.4-10.2) mg/dL Total Bilirubin 0.6 (0.2-1.3) mg/dL AST 34 (14-36) IU/L ALT 17 (9-52) IU/L Alkaline Phosphatase 82 (38-126) U/L Total Protein 8.1 (6.3-8.2) g/dL Albumin 4.6 (3.5-5.0) g/dL Globulin 3.5 (1.7-4.1) g/dL Albumin/Globulin Ratio 1.3 (1.0-2.8) Lipase 41 (23-300) U/L Urine RBC 5-10/hpf H (0-5/HPF) Urine WBC 5-10/hpf H (0-5/HPF) Ur Squamous Epith Cells 10-30 /hpf H D (0-5/HPF) Urine Bacteria None seen (None) Ur Culture Indicated? Cult not indicated Point of Care Testing Test Results Negative Urine Dip Bedside Urine Glucose Negative Bedside Urine Bilirubin - Negative Bedside Urine Ketone +++ 80 Urine Specific [place] 1.015 Bedside Urine Occult Blood ++ Bedside Urine pH 7.5 Bedside Urine Protein + 30 Bedside Urine Urobilinogen +/- 1mg Bedside Urine Nitrite - Negative Bedside Urine Leukocytes +/- 15 Esterase MDM Narrative Medical decision making narrative: The patient is a 23-year-old female who presents with a chief complaint of nausea and vomiting x1 day. She had diarrhea this morning. The patient is hemodynamically stable on initial evaluation and throughout her stay in the emergency department. She does not have an acute abdomen on exam, and overall has a benign exam. She was given IV fluids and lab work was drawn, which came back grossly within normal limits. She was given Zofran in the emergency department and felt much improved and was able to pass a p.o. trial. Urine sample was taken to help rule out acute UTI. Patient was able to tolerate a p.o. trial, keep down juice etc. I discussed at length follow up with primary care provider. Discussed coming back to the emergency department for any acute concerns such as abdominal pain with fever, inability keep down fluids etc. Patient has no questions or concerns upon discharge. States understanding of return precautions as well as follow-up care <Davide Collado, - Last Filed: 04/13/19 07:02> Lab Data Labs: Lab Results 04/12/19 04/12/19 04/12/19 Range/Units 16:58 16:58 17:16 WBC 10.0 (4.5-11.0) X10^3/uL RBC 4.73 (4.0-5.2) X10^6/uL Hgb 14.0 (12.0-16.0) g/dL Hct 40.7 (36-46) % MCV 86.1 (80-100) fL MCH 29.6 (26-34) PG MCHC 34.4 (30-36) % RDW 13.1 (11.6-14.8) % Plt Count 345 (150-400) X10^3/uL Neut % (Auto) 75.7 H (50-75) % Lymph % (Auto) 19.1 L (25-40) % [place] % (Auto) 4.8 (3-14) % Eos % (Auto) 0.0 L (2-4) % Baso % (Auto) 0.4 (0-2) % Neut # (Auto) 7600 H (5336-1151) /uL Lymph # (Auto) 1900 (0086-1476) /uL [place] # (Auto) 500 (0-900) /uL Eos # (Auto) 0 (0-450) /uL Baso # (Auto) 0 (0-100) /uL Sodium 139 (137-145) mmol/L Potassium 3.8 (3.4-5.1) mmol/L Chloride 102 (98-107) mmol/L Carbon Dioxide 26 (22-32) mmol/L BUN 7 (7-17) mg/dL Creatinine 0.50 L (0.52-1.04) mg/dL Estimated GFR > 60.0 (>60) mL/min BUN/Creatinine Ratio 14.0 (6-22) Glucose 83 (70-100) mg/dL Calcium 9.4 (8.4-10.2) mg/dL Total Bilirubin 0.6 (0.2-1.3) mg/dL AST 34 (14-36) IU/L ALT 17 (9-52) IU/L Alkaline Phosphatase 82 (38-126) U/L Total Protein 8.1 (6.3-8.2) g/dL Albumin 4.6 (3.5-5.0) g/dL Globulin 3.5 (1.7-4.1) g/dL Albumin/Globulin Ratio 1.3 (1.0-2.8) Lipase 41 (23-300) U/L Urine RBC 5-10/hpf H (0-5/HPF) Urine WBC 5-10/hpf H (0-5/HPF) Ur Squamous Epith Cells 10-30 /hpf H D (0-5/HPF) Urine Bacteria None seen (None) Ur Culture Indicated? Cult not indicated Point of Care Testing Test Results Negative Urine Dip Bedside Urine Glucose Negative Bedside Urine Bilirubin - Negative Bedside Urine Ketone +++ 80 Urine Specific [place] 1.015 Bedside Urine Occult Blood ++ Bedside Urine pH 7.5 Bedside Urine Protein + 30 Bedside Urine Urobilinogen +/- 1mg Bedside Urine Nitrite - Negative Bedside Urine Leukocytes +/- 15 Esterase Discharge Plan Departure Patient Disposition: Home Clinical Impression: Nausea & vomiting Qualifiers: Vomiting type: unspecified Vomiting Intractability: non-intractable Qualified Code(s): R11.2 - Nausea with vomiting, unspecified Discharge Date/Time: 04/12/19 19:14 Instructions: DI for Nausea -- Adult, DI for Vomiting -- Adult Activity Restrictions/Additional Instructions: I have sent a prescription of Zofran to [facility]. Today your lab work was stable, and her urine did not indicate infection Please follow up with primary care provider. Please come back to the emergency department for any acute concerns such as abdominal pain with fever, inability keep down fluids etc Prescriptions: New ondansetron 4 mg tablet,disintegrating 4 mg PO Q6H PRN (Reason: nausea and vomiting) Qty: 14 RF: 0 No Action norethindrone-e.estradiol-iron [Loestrin Fe 07/21 (28-Day)] 1 mg-20 mcg (21)/75 mg (7) tablet 1 tab PO DAILY Qty: 140 RF: 0 Referrals: Sammy Madrid MD [Primary Care Provider] - Stand Alone Forms: Work Release Note <Davide Collado DO - Last Filed: 04/13/19 07:02> Sign Out Provider Sign Out Attestation: I was available for consultation during this patient's emergency department visit. This chart is signed by myself for administrative purposes only. I did not have direct contact with this patient during this visit. They were seen independently by the APC.
[2019-04-12] MEDS: SODIUM CHLORIDE 0.9% 1,000 ML 1000 ML IV ×2 (17:03→18:00)
[2019-04-12] MEDS: ONDANSETRON 4 MG/2 ML INJ IV ×2 (17:03→18:00)
[2019-04-12 17:09] LABS: Add Manual Diff / Slide Review NO; Basophils Absolute Auto 0 /uL (0-100); Basophils Percent Auto 0.4 % (0-2); Eosinophils Absolute Auto 0 /uL (0-450); Hematocrit 40.7 % (36-46); Lymphocytes Absolute Auto 1900 /uL (1100-4500); Lymphocytes Percent Auto 19.1 % (25-40); Mean Corpuscular HGB Conc 34.4 % (30-36); Mean Corpuscular Hemoglobin 29.6 PG (26-34); Mean Corpuscular Volume 86.1 fL (80-100); Monocytes Absolute Auto 500 /uL (0-900); Monocytes Percent Auto 4.8 % (3-14); Neutrophils Absolute Auto 7600 /uL (1500-7000); Neutrophils Percent Auto 75.7 % (50-75); Platelet Count 345 X10^3/uL (150-400); Red Blood Cell Count 4.73 X10^6/uL (4.0-5.2); Red Cell Distribution Width 13.1 % (11.6-14.8)
[2019-04-12 17:16] VITALS: BP 98/61; PULSE 67; O2SAT 99
[2019-04-12 17:17] LABS: Bacteria Urine None Seen
[2019-04-12 17:35] LABS: Alanine Aminotransferase 17 IU/L (9-52); Albumin 4.6 g/dL (3.5-5.0); Albumin Globulin Ratio 1.3 (1.0-2.8); Alkaline Phosphatase 82 U/L (38-126); Aspartate Aminotransferase 34 IU/L (14-36); Bilirubin Total 0.6 mg/dL (0.2-1.3); Blood Urea Nitrogen 7 mg/dL (7-17); Calcium 9.4 mg/dL (8.4-10.2); Carbon Dioxide 26 mmol/L (22-32); Chloride 102 mmol/L (98-107); Estimated Glomerular Filt Rate > 60.0 mL/min (>60); Globulin 3.5 g/dL (1.7-4.1); Glucose 83 mg/dL (70-100); HEMOLYSIS 17 (0-50); Lipase 41 U/L (23-300); Potassium 3.8 mmol/L (3.4-5.1); Sodium 139 mmol/L (137-145); Total Protein 8.1 g/dL (6.3-8.2)
[2019-04-12 17:57] LABS: Culture Indicated Urine Cult Not Indicated; RBC Urine 5-10/HPF (0-5/HPF); Squamous Epithelial Cell Urine 10-30 /HPF (0-5/HPF); WBC Urine 5-10/HPF (0-5/HPF)
[2019-04-12 18:02] VITALS: BP 103/66; PULSE 71; O2SAT 100
[2019-04-12 18:30] VITALS: BP 101/63; PULSE 78; RESP 18; O2SAT 100
[2019-04-12] MEDS: ONDANSETRON 4 MG ODT PREPACK 1 BOTTLE MISC (19:05)
[2019-04-12 19:13] VITALS: BP 113/93; PULSE 72; RESP 18; O2SAT 100
[2019-04-12 19:14] VITALS: BP 113/93; PULSE 72; RESP 18; O2SAT 100
== END 2019-04-12 19:14 | disposition home or self-care (01) ==
PROVIDERS: Emergency Provider Nurse Practitioner Family; PCP Student in an Organized Health Care Education/Training Program
DX: R11.2 Nausea with vomiting, unspecified (principal)
CPT/HCPCS: 80053; 81003; 81015; 81025; 83690; 85025; 96361; 96374; 96376; 99283; 99284; J2405

== ENCOUNTER → 2020-03-05 16:25 | Outpatient (CLI) | payer OTHER, MEDICAID, SELFPAY ==
[2020-03-05 16:53] LABS: Add Manual Diff / Slide Review NO; Basophils Absolute Auto 0 /uL (0-100); Basophils Percent Auto 0.5 % (0-2); Eosinophils Absolute Auto 0 /uL (0-450); Eosinophils Percent Auto 0.3 % (2-4); Hematocrit 40.7 % (36-46); Lymphocytes Absolute Auto 2500 /uL (1100-4500); Lymphocytes Percent Auto 30.4 % (25-40); Mean Corpuscular HGB Conc 34.4 % (30-36); Mean Corpuscular Hemoglobin 29.4 PG (26-34); Mean Corpuscular Volume 85.7 fL (80-100); Monocytes Absolute Auto 500 /uL (0-900); Monocytes Percent Auto 5.5 % (3-14); Neutrophils Absolute Auto 5200 /uL (1500-7000); Neutrophils Percent Auto 63.3 % (50-75); Platelet Count 370 X10^3/uL (150-400); Red Blood Cell Count 4.74 X10^6/uL (4.0-5.2); Red Cell Distribution Width 13.3 % (11.6-14.8); White Blood Cell Count 8.3 X10^3/uL (4.5-11.0)
[2020-03-05 17:26] LABS: Alanine Aminotransferase 18 IU/L (<35); Albumin 4.6 g/dL (3.5-5.0); Albumin Globulin Ratio 1.3 (1.0-2.8); Alkaline Phosphatase 91 U/L (38-126); Aspartate Aminotransferase 27 IU/L (14-36); BUN Creatinine Ratio 12.7 (6-22); Bilirubin Total 0.4 mg/dL (0.2-1.3); Blood Urea Nitrogen 9 mg/dL (7-17); Calcium 9.8 mg/dL (8.4-10.2); Carbon Dioxide 30 mmol/L (22-32); Chloride 101 mmol/L (98-107); Estimated Glomerular Filt Rate > 60.0 mL/min (>60); Gamma Glutamyl Transpeptidase 27 U/L (12-43); Globulin 3.6 g/dL (1.7-4.1); Glucose 87 mg/dL (70-100); HEMOLYSIS < 15 (0-50); Lipase 83 U/L (23-300); Potassium 4.5 mmol/L (3.4-5.1); Sodium 137 mmol/L (137-145); Total Protein 8.2 g/dL (6.3-8.2)
[2020-03-05 17:28] LABS: Erythrocyte Sedimentation Rate 18 MM/HR (0-20)
[2020-03-05 17:43] LABS: Pregnancy Test Serum,Qual Negative (Negative)
== END ==
PROVIDERS: PCP Student in an Organized Health Care Education/Training Program; Referring Provider Student in an Organized Health Care Education/Training Program; Visit Provider Student in an Organized Health Care Education/Training Program
DX: R10.9 Unspecified abdominal pain (principal); R11.2 Nausea with vomiting, unspecified
CPT/HCPCS: 36415; 80053; 82977; 83690; 84703; 85025; 85651

== ENCOUNTER → 2020-03-09 12:38 | Outpatient (CLI) | payer OTHER, MEDICAID, SELFPAY ==
[2020-03-09 15:54] LABS: HCG Quantitative /Beta subunit < 2.4 mIU/mL
== END ==
PROVIDERS: PCP Student in an Organized Health Care Education/Training Program; Referring Provider Student in an Organized Health Care Education/Training Program; Visit Provider Student in an Organized Health Care Education/Training Program
DX: R10.9 Unspecified abdominal pain (principal)
CPT/HCPCS: 36415; 84702

== ENCOUNTER → 2021-08-08 09:21 | Outpatient (CLI) | payer OTHER, MEDICAID, SELFPAY ==
[2021-08-08 11:01] LABS: HCG Quantitative /Beta subunit 2615.7 mIU/mL
== END ==
PROVIDERS: Obstetrics & Gynecology; PCP Student in an Organized Health Care Education/Training Program; Referring Provider Student in an Organized Health Care Education/Training Program; Visit Provider Student in an Organized Health Care Education/Training Program
DX: O09.291 Supervision of pregnancy with other poor reproductive or obstetric history, first trimester (principal)
CPT/HCPCS: 36415; 84702

== ENCOUNTER → 2021-08-10 10:18 | Outpatient (CLI) | payer OTHER, MEDICAID, SELFPAY ==
[2021-08-10 11:30] LABS: HCG Quantitative /Beta subunit 5924.4 mIU/mL
== END ==
PROVIDERS: PCP Student in an Organized Health Care Education/Training Program; Referring Provider Obstetrics & Gynecology; Visit Provider Obstetrics & Gynecology
DX: O09.291 Supervision of pregnancy with other poor reproductive or obstetric history, first trimester (principal)
CPT/HCPCS: 36415; 84702

== ENCOUNTER → 2021-09-06 10:56 | Outpatient (CLI) | payer OTHER, MEDICAID, SELFPAY ==
[2021-09-06 16:11] LABS: Urine N gonorrhoeae NOT DETECTED
[2021-09-06 16:33] LABS: Urine Chlamydia NOT DETECTED
== END ==
PROVIDERS: PCP Student in an Organized Health Care Education/Training Program; Visit Provider Obstetrics & Gynecology
DX: Z34.81 Encounter for supervision of other normal pregnancy, first trimester (principal); Z3A.09 9 weeks gestation of pregnancy
CPT/HCPCS: 87086; 87491; 87591

== ENCOUNTER → 2021-09-07 10:26 | Outpatient (CLI) | payer OTHER, MEDICAID, SELFPAY ==
[2021-09-07 12:12] LABS: Add Manual Diff / Slide Review NO; Basophils Absolute Auto 0 /uL (0-100); Basophils Percent Auto 0.3 % (0-2); Eosinophils Absolute Auto 100 /uL (0-450); Eosinophils Percent Auto 0.7 % (2-4); Hematocrit 38.8 % (36-46); Hemoglobin 13.2 g/dL (12.0-16.0); Lymphocytes Absolute Auto 1900 /uL (1100-4500); Lymphocytes Percent Auto 22.1 % (25-40); Mean Corpuscular HGB Conc 33.9 % (30-36); Mean Corpuscular Volume 85.7 fL (80-100); Monocytes Absolute Auto 500 /uL (0-900); Monocytes Percent Auto 6.3 % (3-14); Neutrophils Absolute Auto 6000 /uL (1500-7000); Neutrophils Percent Auto 70.6 % (50-75); Platelet Count 339 X10^3/uL (150-400); Red Blood Cell Count 4.53 X10^6/uL (4.0-5.2); White Blood Cell Count 8.5 X10^3/uL (4.5-11.0)
[2021-09-07 12:32] LABS: Appearance Urine UA CLEAR; Bilirubin Urine UA NEGATIVE (NEGATIVE); Color Urine UA YELLOW; Glucose Urine UA NEGATIVE (Negative); Ketones Urine UA NEGATIVE (NEGATIVE); Leukocyte Esterase Urine UA TRACE (NEGATIVE); Nitrite Urine UA NEGATIVE (Negative); Occult Blood Urine UA 1+ (Negative); Protein Urine UA NEGATIVE (Negative); Specific Gravity Urine UA <=1.005 (1.000-1.035); Urobilinogen Urine UA 0.2 E.U./dL (0.2)
[2021-09-07 12:44] LABS: Bacteria Urine None Seen; Culture Indicated Urine Cult Not Indicated; RBC Urine 1-5/HPF (0-5/HPF); Squamous Epithelial Cell Urine 5-10 /HPF (0-5/HPF); WBC Urine 0-1/HPF (0-5/HPF)
[2021-09-07 12:47] LABS: Hepatitis B Surface Antigen NEGATIVE s/c (NEGATIVE); Rubella Antibody IgG 8.1 IU/mL (>15)
[2021-09-07 13:01] LABS: HIV 1 & 2 Ab/Ag 4th Gen Combo NEGATIVE (NEGATIVE); Hep C Virus Ab w/Reflex Quant NEGATIVE s/c (NEGATIVE)
[2021-09-08 05:33] LABS: RPR Screen Non Reactive (Non Reactive)
[2021-09-08 09:27] LABS: Varicella IgG Antibody <135 index (Immune >165)
== END ==
PROVIDERS: PCP Student in an Organized Health Care Education/Training Program; Referring Provider Obstetrics & Gynecology; Visit Provider Obstetrics & Gynecology
DX: Z34.81 Encounter for supervision of other normal pregnancy, first trimester (principal); Z3A.08 8 weeks gestation of pregnancy
CPT/HCPCS: 36415; 80055; 81003; 81015; 86787; 86803; 86850; 86900; 86901; 87389

== ENCOUNTER → 2021-11-01 11:00 | Outpatient (CLI) | payer OTHER, MEDICAID, SELFPAY ==
[2021-11-01 13:47] LABS: Free T4, Direct Thyroxine 1.15 ng/dL (0.78-2.19)
[2021-11-01 14:02] LABS: Thyroid Stimulating Hormone 0.873 uIU/mL (0.47-4.68)
[2021-11-02 15:16] LABS: SS A Ro Sjogrens Antibody < 0.2 AI (0.0-0.9); SS B La Sjogrens Antibody < 0.2 AI (0.0-0.9)
[2021-11-03 23:07] LABS: AFP, Serum 29.3 ng/mL (.); Inhibin A, Dimeric 101.32 pg/mL (.); Inhibin A, MoM 0.62 (.); Maternal Ethnicity Other (.); Maternal Weight 149 lbs (.); Number of Fetuses No (.); OSBR Risk 1 IN 10000 (.); Results Report (.); Test Results *Screen Negative* (.); hCG, Serum 24692 mIU/mL (.)
== END ==
PROVIDERS: PCP Student in an Organized Health Care Education/Training Program; Referring Provider Obstetrics & Gynecology; Visit Provider Obstetrics & Gynecology
DX: Z34.80 Encounter for supervision of other normal pregnancy, unspecified trimester (principal); Z34.82 Encounter for supervision of other normal pregnancy, second trimester; Z3A.17 17 weeks gestation of pregnancy
CPT/HCPCS: 36415; 82105; 82677; 84439; 84443; 84702; 86235; 86336

== ENCOUNTER → 2021-11-22 09:11 | Outpatient (CLI) | payer OTHER, MEDICAID, SELFPAY ==
--- NOTE | 2021-11-22 09:13 | DI.US.S_ITS ---
PROCEDURE: US OB >= 14 WEEKS FETUS INDICATIONS: 20 WEEK ANATOMY SCAN OUTSIDE/PRIOR DATING DATA: Last menstrual period (LMP): July 05, 2021 LMP-based estimated date of delivery (MATT): April 11, 2022 First dating scan (date and location): August 23, 2021 Estimated date of delivery (MATT) from first dating scan: April 10, 2022 The calculations are made using the ultrasound MATT of April 10, 2022 TECHNIQUE: Real-time scanning was performed of the fetus, with image documentation and biometric measurements. Endovaginal scanning: Performed COMPARISON: None. FINDINGS: General: A single living intrauterine gestation is present. Presentation: Transverse Placenta: Placental position is anterior , without previa. Amniotic fluid index: 15.2 cm, normal range is 5-24 cm. Single deepest vertical pocket is 4.5 cm. heart rate: 149 beats per minute. Maternal cervical canal: Closed and 4.9 cm long. Normal lower limit is 2.5 cm. biometrics: Biparietal diameter: 21 weeks 1 day Head circumference: 20 weeks 6 days Abdominal circumference: 21 weeks 6 days Femur length: 20 weeks 2 days Clinically estimated gestational age: 20 weeks 1 day Composite gestational age from present scan: 21 weeks 0 days Estimated weight and percentile: 400 grams; 92nd percentile Anatomic survey: Neuro: Ventricles are non-dilated at less than 10 mm. Cisterna magna is normal at 3-11 mm. Cerebellum is normal in size and morphology. Nuchal skin fold: Normal at less than 6 mm between 14-21 weeks gestational age. Face: Nose and lips, facial profile are normal. Spine: No evidence for spina bifida. Heart: 4-chambered heart is present, with normal ventricular outflow tracts. Diaphragm: Diaphragm is intact. Stomach: Left-sided stomach is present. Kidneys: No hydronephrosis. Normal is less than 5 mm in 2nd trimester, less than 7 mm in 3rd trimester. Cord: 3-vessel cord has orthotopic insertion. Bladder: Normal in size. Extremities: All 4 extremities identified. IMPRESSION: 1. Single living intrauterine with slightly increased expected growth. Estimated weight 400 grams corresponding to 92nd percentile for gestational age. 2. Normal amniotic fluid index of 15.2 cm. 3. Normal anatomic survey. Dictated by: Prudence Dewitt MD, PhD on 11/24/2021 at 12:35 Approved by: Prudence Dewitt MD, PhD on 11/24/2021 at 12:47
== END ==
PROVIDERS: PCP Student in an Organized Health Care Education/Training Program; Referring Provider Obstetrics & Gynecology; Visit Provider Obstetrics & Gynecology
DX: Z34.82 Encounter for supervision of other normal pregnancy, second trimester (principal); Z3A.21 21 weeks gestation of pregnancy
CPT/HCPCS: 76811

== ENCOUNTER → 2022-01-09 09:21 | Outpatient (CLI) | payer OTHER, MEDICAID, SELFPAY ==
[2022-01-09 11:26] LABS: Hematocrit 33.5 % (36-46); Hemoglobin 11.7 g/dL (12.0-16.0)
[2022-01-09 11:43] LABS: GTT (PREG) 1 Hour PP 50gm Dose 94 mg/dL (76-139)
== END ==
PROVIDERS: PCP Student in an Organized Health Care Education/Training Program; Referring Provider Obstetrics & Gynecology; Visit Provider Obstetrics & Gynecology
DX: Z34.82 Encounter for supervision of other normal pregnancy, second trimester (principal); Z3A.26 26 weeks gestation of pregnancy
CPT/HCPCS: 36415; 82950; 85014; 85018

== ENCOUNTER 2022-02-21 11:49 | Outpatient (CLI) | payer OTHER, MEDICAID, SELFPAY ==
--- NOTE | 2022-02-21 20:16 | PM.OBTRLD ---
Visit Information Visit Information Date of evaluation: 02/21/22 Primary OB Provider: Mary Faulkner On-call OB Provider: Mary Faulkner Reason for Evaluation: Yes non-stress test Comments/Additional reasons for admission: sent from hospice for nonstress test due to decreased movement [facility] Medical History (Updated 09/05/21 @ 09:59 by Audrey Martinez, RN) Incomplete miscarriage Insomnia secondary to anxiety Vaginal delivery Surgical History Hx of dilation and curettage (~12/2017) Family History (Updated 09/05/21 @ 10:07 by Audrey Martinez RN) Mother Gestational diabetes Social History marital status: unmarried,living together (Engaged) number of children: 2 household members: significant other and children lives independently: [facility] pets and animals: No education level: high school occupational status: unemployed current occupational exposures/hazards: No special janice needs: No seatbelt use: always water heater temp set < 120 deg: Yes working smoke detector in home: Yes fire extinguisher in home: Yes carbon monox detector in home: Yes firearms in home: Yes firearms unloaded and locked: Yes do you feel safe at home: Yes Smoking Status: Never smoker second hand exposure: No alcohol intake: former substance use type: does not use during the past year weight has: remained stable well-balanced diet: daily or most days daily servings fruits/ve-4 caffeine: Yes (200mg per day) Type(s) of exercise: regular exercise frequency: 5-6 times per week Evaluation Evaluation Baseline heart rate: 130 Variability: Moderate (11-25) monitor accelerations: Present Monitor Decelerations: Absent Category of Tracing: Reactive Status: Category l Diagnosis, Plan/Disposition Plan/Disposition Plan: NST reactive, reassuring keep routine appointment in 2 weeks. advised to call for any repeat decreased movement. OB Disposition: home
== END 2022-02-21 12:29 | disposition home or self-care (01) ==
LOC: OB 02-23 07:23
PROVIDERS: PCP Student in an Organized Health Care Education/Training Program; Referring Provider Obstetrics & Gynecology; Visit Provider Obstetrics & Gynecology
DX: O36.8130 Decreased fetal movements, third trimester, not applicable or unspecified (principal); Z3A.33 33 weeks gestation of pregnancy
CPT/HCPCS: 59025; G0378; G0379

== ENCOUNTER → 2022-03-07 11:09 | Outpatient (CLI) | payer OTHER, MEDICAID, SELFPAY ==
[2022-03-08 11:50] LABS: Strep Grp B PCR POS for Grp B Strep
== END ==
PROVIDERS: PCP Student in an Organized Health Care Education/Training Program; Visit Provider Obstetrics & Gynecology
DX: Z34.83 Encounter for supervision of other normal pregnancy, third trimester (principal); Z3A.35 35 weeks gestation of pregnancy
CPT/HCPCS: 87653

== ENCOUNTER → 2022-03-13 09:31 | Outpatient (CLI) | payer OTHER, MEDICAID, SELFPAY ==
--- NOTE | 2022-03-13 09:39 | DI.US.S_ITS ---
PROCEDURE: US OB LIMITED INDICATIONS: Growth, BISI OUTSIDE/PRIOR DATING DATA: Last menstrual period (LMP): 07/05/21. LMP-based estimated date of delivery (MATT): 04/11/22. First dating scan (date and location): 08/23/21. Estimated date of delivery (MATT) from first dating scan: 04/10/22. The calculations are made using the ultrasound MATT of 04/10/22. TECHNIQUE: Real-time scanning was performed of the fetus, with image documentation and biometric measurements. Endovaginal scanning: Not performed COMPARISON: [facility], [employer], 06/16/2015, 10:37. FINDINGS: General: A single living intrauterine gestation is present. Presentation: Transverse, head to maternal right. Placenta: Placental position is anterior and fundal , without previa. Amniotic fluid index: 10.9 cm, normal range is 5-24 cm. Single deepest vertical pocket is 5.4 cm. heart rate: 145 beats per minute. Maternal cervical canal: Closed and 5.7 cm long. Normal lower limit is 2.5 cm. biometrics: Biparietal diameter: 9.0 cm, 36 weeks, three days Head circumference: 33.0 cm, 37 weeks, four days Abdominal circumference: 35.0 cm, 38 weeks, six days Femur length: 7.1 cm, 36 weeks, two days Clinically estimated gestational age: 36 weeks, 0 days Composite gestational age from present scan: 37 weeks, two days Estimated weight and percentile: 3324 g, 92 percentile Other: Not applicable. IMPRESSION: 1. Single living intrauterine with growth measuring one week and two days ahead of the clinically estimated gestational age. 2. Estimated weight at the 92 percentile, stable compared to the prior scan. 3. Normal amniotic fluid volume. We strive to produce accurate, complete, and clear reports of imaging services. To assist us in improving patient care, this report was composed using standard report templates and voice recognition software. Therefore, it may contain abnormal punctuation, insertions and/or omissions. Occasional wrong-word or sound-alike substitutions may occur. Though we review the report and make efforts to correct it, we do recommend that the report be read carefully in proper context to recognize any text inaccuracies. Dictated by: Summer Salvador M.D. on 03/13/2022 at 14:08 Approved by: Summer Salvador M.D. on 03/13/2022 at 14:13
== END ==
PROVIDERS: PCP Student in an Organized Health Care Education/Training Program; Referring Provider Obstetrics & Gynecology; Visit Provider Obstetrics & Gynecology
DX: O26.843 Uterine size-date discrepancy, third trimester (principal); O36.5990 Maternal care for other known or suspected poor fetal growth, unspecified trimester, not applicable or unspecified
CPT/HCPCS: 76815

== ENCOUNTER 2022-03-17 08:22 | Outpatient (CLI) | payer OTHER, MEDICAID, SELFPAY ==
--- NOTE | 2022-03-17 09:07 | P.TNLD_ITS ---
Visit Information Visit Information Date of evaluation: 03/17/22 Primary OB Provider: Mary Faulkner On-call OB Provider: Mary Faulkner Comments/Additional reasons for admission: external cephalic version 26-year-old female here for external cephalic version due to persistent breech presentation. After review of options of ECV, and discussing risks and benefits, she desired to proceed with ECV. Risks of the procedure reviewed including risk of spontaneous rupture membranes, bleeding, abruption, acute distress during the procedure leading to an urgent which would then be under general anesthesia, was discussed. Verbal and written consent was obtained. [facility] Medical History Incomplete miscarriage Insomnia secondary to anxiety Vaginal delivery Surgical History Hx of dilation and curettage (~12/2017) Family History Mother Gestational diabetes Social History marital status: unmarried,living together (Engaged) number of children: 2 household members: significant other and children lives independently: Yes housing: condominium pets and animals: No education level: high school occupational status: unemployed current occupational exposures/hazards: No special janice needs: No seatbelt use: always water heater temp set < 120 deg: Yes working smoke detector in home: Yes fire extinguisher in home: Yes carbon monox detector in home: Yes firearms in home: Yes firearms unloaded and locked: Yes do you feel safe at home: Yes Smoking Status: Never smoker second hand exposure: No alcohol intake: former substance use type: does not use during the past year weight has: remained stable well-balanced diet: daily or most days daily servings fruits/ve-4 caffeine: Yes (200mg per day) Type(s) of exercise: regular exercise frequency: 5-6 times per week Exam Narrative Exam Narrative: Bedside ultrasound showed persistent magdi breech presentation. The vertex was present between her left upper quadrant and mid upper abdomen, spine anterior. IV was placed. She was given terbutaline 0.25 mg subQ 5 minutes prior to the procedure. Dr. Hinojosa assisted. Mineral oil placed on patient abdominal skin. With elevating baby's bottom and pressure of baby's bottom as well as vertex, infant encouraged to do a forward turn, pushing clockwise. Infant gradually move, with moderate pressure and was moved to vertex with 1 attempt. FHR checked with ultrasound right after the attempt and was normal. Patient tolerated the procedure well. She was placed back on the EFM/toco for postprocedural monitoring. Evaluation Evaluation Baseline heart rate: 140 Variability: Moderate (11-25) monitor accelerations: Present Monitor Decelerations: Absent Category of Tracing: Reactive Status: Category l Comments: Post external cephalic version procedure, patient monitored for 45 minutes. No contractions, EFM category 1, reactive, baseline 140, moderate variability, positive for accelerations, no decelerations Diagnosis, Plan/Disposition Plan/Disposition Plan: 36+ weeks, magdi breech presentation, successful external cephalic version. Reassuring postprocedural EFM/toco monitoring and postprocedural reactive NST. Postprocedural precautions and signs and symptoms to watch for reviewed. Instructed she should call for any leakage of fluid, vaginal bleeding, decreased movement, regular uncomfortable contractions or any persistent moderate or severe abdominal pain. I discussed with her she may feel mildly sore over her abdominal muscles from the procedure today or next few days. Abdominal binder given. Blood type is Rh positive. OB Disposition: home
[2022-03-17] MEDS: TERBUTALINE 1 MG/ML VIAL 0.25 MG SUBCUT (09:12)
== END 2022-03-17 10:20 | disposition home or self-care (01) ==
LOC: LABOR 09:10 → OB 03-20 09:20
PROVIDERS: PCP Student in an Organized Health Care Education/Training Program; Referring Provider Obstetrics & Gynecology; Visit Provider Obstetrics & Gynecology
DX: O32.1XX0 Maternal care for breech presentation, not applicable or unspecified (principal); Z3A.36 36 weeks gestation of pregnancy
CPT/HCPCS: 59025; 59412; 96372; G0378; G0379

== ENCOUNTER 2022-03-29 11:19 | Outpatient (CLI) | payer OTHER, MEDICAID, SELFPAY | END 2022-03-29 12:05 | disposition home or self-care (01) | LOC: OB 04-03 11:45 | PROVIDERS: PCP Student in an Organized Health Care Education/Training Program; Referring Provider Obstetrics & Gynecology; Visit Provider Obstetrics & Gynecology | DX: O36.8130 Decreased fetal movements, third trimester, not applicable or unspecified (principal); Z3A.38 38 weeks gestation of pregnancy | CPT/HCPCS: 59025; G0378; G0379 ==

== ENCOUNTER 2022-04-04 20:07 | Inpatient (IN) | payer OTHER, MEDICAID, SELFPAY ==
--- NOTE | 2022-04-04 20:25 | PM.OBHP.IH.1 ---
OB HPI Date/Time Date of admission: 04/04/22 Date Patient Seen: 03/29/22 History of Present Condition Chief complaint: observation of labor MATT Calculator Estimated Delivery Date Method Current WG Current Estimate 04/11/22 LMP (Uncertain) 39w 0d Other Estimates 04/08/22 Ultrasound #1 39w 3d 04/10/22 Ultrasound #2 39w 1d Estimated Gestational Age (weeks): 39 : 4 Para: 2 Narrative: 26 yo presents for admission for elective induction of labor at 39 weeks. Her has been uncomplicated. care: good care Dating criteria OB: LMP confirmed by 1st trimester US Ultrasounds: normal 1st trimester US and normal mid trimester US Obstetrical complications: none Medical complications OB: none Indications Indication for induction OB: other (elective due to 's work distance) Preadmission Labs Last OB Lab Results: Blood Type O Positive 09/07/21 10:46 Antibody Screen Negative 09/07/21 10:46 Hematocrit 36.8 % (36-46) 04/04/22 20:45 Hemoglobin 12.8 g/dL (12.0-16.0) 04/04/22 20:45 Hepatitis B Surface Antigen Negative s/c (NEGATIVE) 09/07/21 10:46 Hepatitis C Antibody Negative s/c (NEGATIVE) 09/07/21 10:46 Rubella Antibody 8.1 IU/mL (>15) L 09/07/21 10:46 Varicella-Zoster IgG Antibody <135 index (Immune >165) L 09/07/21 10:46 Glucose 1 Hour 94 mg/dL (76-139) 01/09/22 10:39 Group B Streptococcus (PCR) Pos for grp b strep H 03/07/22 11:09 -: Chlamydia screen: negative and Gonorrhea screen: negative Genetic Screens: Quad screen: Normal Prior (ies) Past Pregnancies Del. Date GA/Weeks Labor Lgth Wt Sex Route Outcome Anesthesia Place Delv Breastfeed Preg Comp Name 12/03/15 39 17 8 lb 4 oz Female vaginal live - full term epidural IH 1 yr none Jennifer 02/27/17 39 7 8 lb 6 oz Male vaginal live - full term epidural IH 1 yr none Jayesh 01/09/18 6 Delivery Date: 02/27/17 Last Updated by: Audrey Martinez R.N. Her heart rate was up and down Delivery Date: 01/09/18 Last Updated by: Audrey Martinez R.N. D & C for remained products, had heavy bleeding brought in by ambulance Evaluation Evaluation Baseline heart rate: 125 Variability: Average (6-10) monitor accelerations: Present Monitor Decelerations: Absent Contraction Frequency (minutes): 9 Uterine Contraction Intensity: Mild Category of Tracing: Reactive Status: Category l Dilation (cm): 0 Effacement (%): 0 PFSH Medical History Incomplete miscarriage Insomnia secondary to anxiety Vaginal delivery Surgical History Hx of dilation and curettage (~12/2017) Family History Mother Gestational diabetes Social History marital status: unmarried,living together (Engaged) number of children: 2 household members: significant other and children lives independently: Yes housing: [facility] pets and animals: No education level: high school occupational status: unemployed current occupational exposures/hazards: No special janice needs: No seatbelt use: always water heater temp set < 120 deg: Yes working smoke detector in home: Yes fire extinguisher in home: Yes carbon monox detector in home: Yes firearms in home: Yes firearms unloaded and locked: Yes do you feel safe at home: Yes Smoking Status: Never smoker second hand exposure: No alcohol intake: former substance use type: does not use during the past year weight has: remained stable well-balanced diet: daily or most days daily servings fruits/ve-4 caffeine: Yes (200mg per day) Type(s) of exercise: regular exercise frequency: 5-6 times per week Meds Home Medications and Allergies Home Medications Medication Instructions Recorded Confirmed Type prenat.vits,jazlyn,bxl-ypkl-qyeda 1 tab PO DAILY 09/05/21 04/04/22 History terconazole 0.8 % vaginal cream 1 appful vaginal BEDTIME 3 days 01/24/22 04/04/22 Rx #20 grams gxpaddfwxe-nawxfrttsdqmn-rhjowhne 1 cap PO Q4-6H PRN headache #10 02/21/22 04/04/22 Rx 50 mg-300 mg-40 mg capsule caps (Fioricet) cemcfmrxot-tuxjgwfzakhyh-buahzczq 1 tab PO Q4-6H PRN pain #14 tabs 02/21/22 04/04/22 Rx 50 mg-325 mg-40 mg tablet Allergies Allergy/AdvReac Type Severity Reaction Status Date / Time No Known Drug Allergies Allergy Verified 03/15/22 11:56 OB Exam Narrative Exam Narrative: Vital signs: Temp 36.9 C, BP 110/70, Pulse 82 HENMT Head: normal to inspection and normocephalic Resp Effort & Inspection: normal respiratory effort and able to speak in complete sentences Cardio Rate: regular rate Extremities Lower extremity: Yes normal to inspection Objective Labs Result Diagrams: 04/04/22 20:45 Assessment and Plan Assessment and Plan Assessment and Plan narrative: 26 yo female admitted at 39wk0d for elective IOL For logistical purposes, due to working in [place]. GBS+ Induction consent reviewed and signed on 03/29/22 nonstress test reactive, reassuring. EFM category 1. Cervidil to be placed for cervical ripening for unfavorable cervix.
[2022-04-04 21:11] VITALS: BP 110/70
[2022-04-04] MEDS: DINOPROSTONE VAG (CERVIDIL) 10 MG VAG (21:33)
[2022-04-04 21:35] LABS: Add Manual Diff / Slide Review NO; Basophils Absolute Auto 0 /uL (0-100); Basophils Percent Auto 0.5 % (0-2); Eosinophils Absolute Auto 0 /uL (0-450); Eosinophils Percent Auto 0.2 % (2-4); Hematocrit 36.8 % (36-46); Hemoglobin 12.8 g/dL (12.0-16.0); Lymphocytes Absolute Auto 1800 /uL (1100-4500); Lymphocytes Percent Auto 18.7 % (25-40); Mean Corpuscular HGB Conc 34.7 % (30-36); Mean Corpuscular Hemoglobin 29.5 PG (26-34); Mean Corpuscular Volume 85.1 fL (80-100); Monocytes Absolute Auto 600 /uL (0-900); Monocytes Percent Auto 5.8 % (3-14); Neutrophils Absolute Auto 7100 /uL (1500-7000); Neutrophils Percent Auto 74.8 % (50-75); Platelet Count 273 X10^3/uL (150-400); Red Blood Cell Count 4.32 X10^6/uL (4.0-5.2); Red Cell Distribution Width 13.5 % (11.6-14.8); White Blood Cell Count 9.5 X10^3/uL (4.5-11.0)
[2022-04-04 22:01] LABS: COVID19 -Nasal RAPID Negative (Negative)
--- NOTE | 2022-04-05 08:02 | PM.OBPNLAB ---
Date/Time Date Patient Seen: 04/05/22 Time Patient Seen: 07:50 Pain Control Comments: Patient comfortable. Feeling some pressure after ambulating to the bathroom, with the Cervidil. Only felt a little crampy after the Cervidil 1 in last night otherwise not feeling any contractions. Pelvic Exam Dilation (cm): 0 Effacement (%): 0 Contractions Contraction frequency (min): 4 Contraction pattern: Regular Contraction intensity: Mild Status status: Category l Heart Rate Baseline: 125 Monitor Accelerations: Present Monitor Decelerations: Absent Monitor Variability: Absent Assessment and Plan Assessment: induction ongoing Comments: Cervidil due for removal at 9:30 a.m.. Will evaluate have frequent contractions are at that time. If ctx infrequent with still unfavorable cervix, then will continue cervical ripening with a dose of misoprostol.
[2022-04-05] MEDS: LACTATED RINGERS 1,000 ML 100 ML IV ×2 (10:53→13:44)
[2022-04-05] MEDS: OXYTOCIN PREMIX 30 UNIT/500 ML PLAST..BAG IV (10:55)
[2022-04-05] MEDS: PENICILLIN G POTASSIUM 5,000,000 UNIT in DEXTROSE 5% IN WATER 250 ML 250 UNIT IV (12:07)
[2022-04-05] MEDS: fentaNYL 100 MCG/2 ML INJ 50 MCG IV (12:22)
--- NOTE | 2022-04-05 12:30 | PM.OBPNLAB ---
Date/Time Date Patient Seen: 04/05/22 Time Patient Seen: 12:15 Pain Control Pain control: tolerating well Comments: After Cervidil removed, she was having contractions every 2-6 minutes, but some frequent 2-3 minute contractions. She was starting to feel a little discomfort. Decision made to proceed with starting Pitocin for induction of labor. Pitocin currently at 3 milliunits. She is becoming uncomfortable with contractions. Desires her epidural. Penicillin started for GBS prophylaxis. Pelvic Exam Dilation (cm): 4 Effacement (%): 50 station: -2 Amniotic membrane status: Intact Comments: Cervix mid to anterior position Contractions Pitocin rate (mU/min): 3 Contraction frequency (min): 3 Contraction pattern: Regular Contraction intensity: Moderate Status status: Category l Heart Rate Baseline: 130 Monitor Accelerations: Present Monitor Decelerations: Absent Monitor Variability: Moderate Assessment and Plan Assessment: induction ongoing and other (Early labor) Plan: other Comments: Desires epidural. She is having cervical change consistent with labor. Called for epidural. Anesthesia with an approximate 1 hour delay in surgery. Offered and patient desires fentanyl IV in the interim. Will decrease her Pitocin from 3 milliunits to 1 milliunits while awaiting the epidural.
[2022-04-05] MEDS: FENT 2MCG/ML BUPIV 0.125% EPI 200 MCG/100 ML PLAST..BAG 12 MCG EPIDURAL ×2 (13:51→18:29)
[2022-04-05] MEDS: PENICILLIN G POTASSIUM 3,000,000 UNIT/50 ML FROZ.PIGGY 100 UNIT IV (17:09)
[2022-04-05] MEDS: ONDANSETRON 4 MG/2 ML INJ IV ×2 (17:47→19:33)
--- NOTE | 2022-04-05 17:50 | PM.OBPNLAB ---
Date/Time Date Patient Seen: 04/05/22 Time Patient Seen: 17:30 Pain Control Pain control: epidural Comments: Margot is comfortable with the epidural. Cervix 4/100% at approximately 1400. She is feeling occasional vaginal pressure now. Pelvic Exam Dilation (cm): 6 Effacement (%): 100 station: -2 Amniotic membrane status: Intact Comments: Large bulging back in front of vertex, vertex not well applied throughout. AROM deferred. Contractions Pitocin rate (mU/min): 3 Contraction frequency (min): 2 Contraction pattern: Regular Contraction intensity: Strong/Firm Status status: Category l Heart Rate Baseline: 125 Monitor Accelerations: Present Monitor Decelerations: Absent Monitor Variability: Moderate Assessment and Plan Assessment: active labor and induction ongoing Plan: continuous present management Comments: Continue Pitocin at current dose. Repositioned her to sit up more, to bring vertex more against cervix. Anticipate she may have spontaneous rupture membranes soon. She just received a 3rd dose of penicillin for GBS prophylaxis
--- NOTE | 2022-04-05 21:22 | PM.OBPRVD ---
Labor & Delivery Delivery date: 04/05/22 Intrapartal Events: None Cervical ripening method: per Cervidil protocol Induction method: per pitocin protocol Delivery augmentation: rupture of membranes Delivery monitor: external FHT and external uterine Route of delivery: Episiotomy description: None L&D Laceration Description: None Quantitative Blood Loss: 200 Anesthesia Type: Epidural Complications: none Baby 1: Infant gender: Female Presentation: vertex Position: Left Occiput Anterior Placenta delivery description: Spontaneous Cord Vessel Description: 3 Vessels score (1 min): 9 score (5 min): 9 weight: 8 lb 13.237 oz Narrative: over intact perineum. Placenta: spontaneous/ intact/3 vessel cord. No obstetrical lacerations. She progressed to 9+ cm/0 station, feeling much pressure. Anterior lip of cervix reduced with patient pushing, then cervix was completely dilated and vertex 2+ station. She was prepped for delivery. She pushed over the next contraction and had a spontaneous vaginal delivery over an intact perineum. Vertex delivered in a controlled fashion. No nuchal cord was present. Anterior shoulder did not initially come with the patient pushing. Posterior shoulder was noted to be delivering. A hand was noted next to the posterior shoulder. The posterior, left arm was easily palpated, grasped and delivered. Posterior shoulder then fully delivered, followed by anterior shoulder, followed by the remainder of the body. A baby girl was delivered. The baby cried spontaneously, appeared vigorous and was placed on the maternal abdomen. After a few minutes, cord was clamped and cut. Placenta delivered spontaneously approximately 6 minutes after delivery of the baby. Some clots delivered with the placenta but bleeding was normal. Uterine massage and routine Pitocin IV was given. The uterus firmed up and her bleeding remained normal. On inspection she did not have any obstetrical lacerations. The perineum, vaginal sidewalls and periurethral areas were intact. She did well and was left to recover in good condition. Time of : 2051 Time of placental delivery: 2057 Plan for aftercare: Routine care
[2022-04-05] MEDS: OXYTOCIN PREMIX 30 UNIT/500 ML PLAST..BAG 200 UNIT IV (21:33)
[2022-04-06] MEDS: IBUPROFEN 600 MG TABLET PO ×2 (08:15→15:56)
--- NOTE | 2022-04-06 10:38 | P.PNOB_ITS ---
Subjective - OB Subjective Patient comments: no complaints, tolerating diet and other (lochia normal. Cramping with only) [place] baby status: doing well and nursing well feeding status: exclusively breast feeding Date Patient Seen: 04/06/22 Time Patient Seen: 10:38 Exam Vital Signs (past 8 hours): Temperature 97F, BP 100/60, Pulse 95, RR 16 Narrative Exam Narrative: General: ?Well-appearing female Abdomen: ?Soft, nontender, nondistended. ?Fundus U -1, firm, nontender Extremities: ?Trace pedal edema bilaterally Objective Labs Result Diagrams: 04/04/22 20:45 Assessment & Plan Plan day: 1 plan OB: routine care, discharge home and follow up 6 weeks Comments: Doing well. Desires discharge home today. Baby is doing well and anticipate b mauricio being discharged this evening. If baby discharge, will discharge the patient home. Time Spent With Patient Time: Total time spent is greater than 50% in coordination of care (as documented) at patient's floor/unit and/or counseling patient: Time with patient: less than 15 minutes
[2022-04-06] MEDS: MEASLES,MUMPS,RUBELLA VACC/PF 0.5 ML VIAL SUBCUT (15:56)
[2022-04-06 16:14] VITALS: BP 87/65; PULSE 75; RESP 16; TEMP 36.4
--- NOTE | 2022-04-06 16:45 | PM.DS.1 ---
History of Present Illness History of Present Illness Date Patient Seen: 04/06/22 Time Patient Seen: 10:38 Chief complaint: L&D Discharge Providers Provider Date of admission: 04/04/22 20:07 Primary care physician: Sammy Madrid MD Consults: 04/06/22 23:20 Consult to Histology Manager Routine Comment: Discharge provider: Mary Faulkner MD Exam Vital Signs (past 8 hours): - 04/06/22 16:14 Temperature 97.5 F L Pulse Rate 75 Respiratory Rate 16 Blood Pressure 87/65 L Objective Labs Result Diagrams: 04/04/22 20:45 [facility] Medical History Incomplete miscarriage Insomnia secondary to anxiety Vaginal delivery Surgical History Hx of dilation and curettage (~12/2017) Family History Mother Gestational diabetes Social History marital status: unmarried,living together (Engaged) number of children: 2 household members: significant other and children lives independently: Yes housing: condominium pets and animals: No education level: high school occupational status: unemployed current occupational exposures/hazards: No special janice needs: No seatbelt use: always water heater temp set < 120 deg: Yes working smoke detector in home: Yes fire extinguisher in home: Yes carbon monox detector in home: Yes firearms in home: Yes firearms unloaded and locked: Yes do you feel safe at home: Yes Smoking Status: Never smoker second hand exposure: No alcohol intake: former substance use type: does not use during the past year weight has: remained stable well-balanced diet: daily or most days daily servings fruits/ve-4 caffeine: Yes (200mg per day) Type(s) of exercise: regular exercise frequency: 5-6 times per week Discharge Plan Discharge Plan Patient Disposition: Home Provider Discharge Comment: s/p vaginal delivery at 39 weeks Ibuprofen 600 mg every 6 hours as needed for pain Tylenol 650 mg every 6 hours as needed for pain Discharge orders & Medications Prescriptions: Continued prenat.vits,jazlyn,vbo-kgtj-noaxa Tablet 1 tab PO DAILY terconazole 0.8 % cream 1 appful vaginal BEDTIME 3 Days Qty: 20 1RF Label Comments: not using vgddsjhjnp-qdfwmlqjaaiff-bmin [Fioricet] 50-300-40 mg capsule 1 cap PO Q4-6H PRN (Reason: headache) Qty: 10 2RF Label Comments: not taking wnaftbcgoy-ssygvkzdbzujf-fwgs 50-325-40 mg tablet 1 tab PO Q4-6H PRN (Reason: pain) Qty: 14 0RF Label Comments: not taking Follow up/Referrals: Sammy Madrid MD [Primary Care Provider] - Mary Faulkner MD [Physician] - 6 Weeks (05/18, 10:15 check in ) Discharge Health Status Multidrug resistant organism: No MDRO Diet/Activity/Treatments Diet: Regular Activity: Nothing in the vagina for 6 weeks. No tampons and no intercourse Skin/Wound/Dressing Care Report to your healthcare provider any signs of infection, such as:: chills, fever Visit Report/Discharge Packet Stand Alone Forms: Discharge: Care Discharge Data Primary Care Provider: Sammy Madrid
--- NOTE | 2022-04-06 19:25 | PM.OBDS.1 ---
Discharge Providers Provider Date of admission: 04/04/22 20:07 Discharge Date: 04/06/22 Primary care physician: Sammy Madrid MD Discharge provider: Mary Faulkner MD Summary Hospital Course Date Patient Seen: 04/06/22 Time Patient Seen: 10:38 Diagnoses: 39 week , delivered Status post spontaneous vaginal delivery Hospital Course: 26 yo admitted on 04/04/2020 to for for elective induction of labor at 39 weeks. Her has been uncomplicated. Dating criteria OB: LMP confirmed by 1st trimester US She underwent cervical ripening with Cervidil and then induction of labor with Pitocin. She progressed into labor and received an epidural for anesthesia. She progressed in labor and had a spontaneous vaginal delivery. She had no obstetrical lacerations. The placenta delivered spontaneously. She has had a normal course. She has remained afebrile. Her blood pressure is normal. She is without problems. She desires discharge home today if the baby is ready. The baby is doing well and per culture room worker is okay for discharge home. Patient was discharged home it in good condition. Follow-up appointment scheduled for 6 weeks. Peripartum Data Infant Delivery Method: Natural Vaginal Laceration Description: None Episiotomy description: None complications: none 1: Gender: Female Disposition of : home Status at Discharge Cognitive/behavioral status at discharge: oriented Functional status at discharge: independent ambulation Overall status at discharge: patient is back to baseline Time Spent with Patient Time attestation: Total time spent providing and/or coordinating discharge services: Time spent: Less than 30 minutes Objective Labs Result Diagrams: 04/04/22 20:45 Exam Vital Signs (past 8 hours): - 04/06/22 16:14 Temperature 97.5 F L Pulse Rate 75 Respiratory Rate 16 Blood Pressure 87/65 L VS @ 1038: Temperature 97F, BP 100/60, Pulse 95, RR 16 Narrative Exam Narrative: General: ?Well-appearing female Abdomen: ?Soft, nontender, nondistended. ?Fundus U -1, firm, nontender Extremities: ?Trace pedal edema bilaterally Discharge Plan Discharge Plan Patient Disposition: Home Provider Discharge Comment: s/p vaginal delivery at 39 weeks Ibuprofen 600 mg every 6 hours as needed for pain Tylenol 650 mg every 6 hours as needed for pain Discharge orders & Medications Prescriptions: Continued prenat.vits,jazlyn,iby-ohdj-ztkjz Tablet 1 tab PO DAILY terconazole 0.8 % cream 1 appful vaginal BEDTIME 3 Days Qty: 20 1RF Label Comments: not using dlrdtpixzj-hrpnisxtvsmwe-xrmv [Fioricet] 50-300-40 mg capsule 1 cap PO Q4-6H PRN (Reason: headache) Qty: 10 2RF Label Comments: not taking qaiwafpxjj-lcdduwczdzjpf-ofhn 50-325-40 mg tablet 1 tab PO Q4-6H PRN (Reason: pain) Qty: 14 0RF Label Comments: not taking Follow up/Referrals: Sammy Madrid MD [Primary Care Provider] - Mary Faulkner MD [Physician] - 6 Weeks (05/18, 10:15 check in ) Discharge Health Status Multidrug resistant organism: No MDRO Diet/Activity/Treatments Diet: Regular Activity: Nothing in the vagina for 6 weeks. No tampons and no intercourse Skin/Wound/Dressing Care Report to your healthcare provider any signs of infection, such as:: chills, fever Visit Report/Discharge Packet Stand Alone Forms: Discharge: Care Discharge Data Primary Care Provider: Sammy Madrid
== END 2022-04-06 17:20 | disposition home or self-care (01) | DRG 560 ==
PROVIDERS: Admitting Provider Obstetrics & Gynecology; PCP Student in an Organized Health Care Education/Training Program; Referring Provider Obstetrics & Gynecology; Visit Provider Obstetrics & Gynecology
DX: O99.824 Streptococcus B carrier state complicating childbirth (principal); Z3A.39 39 weeks gestation of pregnancy; Z37.0 Single live birth; Z20.822 Contact with and (suspected) exposure to COVID-19
CPT/HCPCS: 01967; 36415; 59050; 59200; 59409; 85025; 86850; 86900; 86901; 87635; C9803; G0379; J2405; J2540; J2590; J3010

== ENCOUNTER → 2023-05-28 17:04 | Outpatient (CLI) | payer OTHER, MEDICAID, SELFPAY ==
[2023-05-28 19:53] LABS: Urine N gonorrhoeae NOT DETECTED
[2023-05-28 20:06] LABS: Urine Chlamydia NOT DETECTED
== END ==
PROVIDERS: PCP Student in an Organized Health Care Education/Training Program; Visit Provider Student in an Organized Health Care Education/Training Program
DX: Z34.81 Encounter for supervision of other normal pregnancy, first trimester (principal); Z3A.01 Less than 8 weeks gestation of pregnancy
CPT/HCPCS: 87491; 87591

== ENCOUNTER → 2023-06-27 11:34 | Outpatient (CLI) | payer OTHER, MEDICAID, SELFPAY ==
[2023-06-27 12:26] LABS: Add Manual Diff / Slide Review NO; Basophils Absolute Auto 0 /uL (0-100); Basophils Percent Auto 0.3 % (0-2); Eosinophils Absolute Auto 100 /uL (0-450); Eosinophils Percent Auto 1.3 % (2-4); Lymphocytes Absolute Auto 1800 /uL (1100-4500); Lymphocytes Percent Auto 22.3 % (25-40); Mean Corpuscular HGB Conc 35.2 % (30-36); Mean Corpuscular Hemoglobin 30.1 PG (26-34); Mean Corpuscular Volume 85.6 fL (80-100); Monocytes Absolute Auto 400 /uL (0-900); Monocytes Percent Auto 5.5 % (3-14); Neutrophils Absolute Auto 5600 /uL (1500-7000); Neutrophils Percent Auto 70.6 % (50-75); Platelet Count 313 X10^3/uL (150-400); Red Blood Cell Count 4.32 X10^6/uL (4.0-5.2); Red Cell Distribution Width 13.4 % (11.6-14.8); White Blood Cell Count 7.9 X10^3/uL (4.5-11.0)
[2023-06-27 14:37] LABS: Urine Chlamydia NOT DETECTED; Urine N gonorrhoeae NOT DETECTED
[2023-06-28 03:23] LABS: RPR Screen Non Reactive (Non Reactive)
[2023-06-28 09:11] LABS: Varicella IgG Antibody <135 index (Immune >165)
[2023-06-28 17:03] LABS: Hepatitis B Surface Antigen NEGATIVE s/c (NEGATIVE); Rubella Antibody IgG 26.8 IU/mL (>15)
[2023-06-28 17:07] LABS: HIV 1 & 2 Ab/Ag 4th Gen Combo NEGATIVE (NEGATIVE); Hep C Virus Ab w/Reflex Quant NEGATIVE s/c (NEGATIVE)
== END ==
PROVIDERS: Student in an Organized Health Care Education/Training Program; Referring Provider Obstetrics & Gynecology; Visit Provider Obstetrics & Gynecology
DX: Z34.81 Encounter for supervision of other normal pregnancy, first trimester (principal); Z3A.11 11 weeks gestation of pregnancy
CPT/HCPCS: 36415; 80055; 86787; 86803; 86850; 86900; 86901; 87086; 87389; 87491; 87591

== ENCOUNTER → 2023-08-01 09:42 | Outpatient (CLI) | payer OTHER, MEDICAID, SELFPAY ==
[2023-08-04 00:49] LABS: AFP, Serum 21.9 ng/mL (.); Calc Gestational Age EDD (.); Estriol, Free 0.79 ng/mL (.); Inhibin A, Dimeric 104.85 pg/mL (.); Inhibin A, MoM 0.65 (.); Maternal Ethnicity Other (.); Maternal Weight 138 lbs (.); Number of Fetuses No (.); OSBR Risk 1 IN 10000 (.); Results Report (.); Test Results *Screen Negative* (.); hCG, MoM 0.48 (.); hCG, Serum 20358 mIU/mL (.)
== END ==
LOC: LAB 09:43
PROVIDERS: Referring Provider Student in an Organized Health Care Education/Training Program; Visit Provider Student in an Organized Health Care Education/Training Program
DX: Z34.82 Encounter for supervision of other normal pregnancy, second trimester (principal); Z3A.15 15 weeks gestation of pregnancy
CPT/HCPCS: 36415; 82105; 82677; 84702; 86336

== ENCOUNTER → 2023-08-29 10:05 | Outpatient (CLI) | payer OTHER, MEDICAID, SELFPAY ==
--- NOTE | 2023-08-29 10:06 | DI.US.S_ITS ---
PROCEDURE: US OB >= 14 WEEKS FETUS INDICATIONS: ANATOMY OUTSIDE/PRIOR DATING DATA: Last menstrual period (LMP): Unknown. LMP-based estimated date of delivery (MATT): Not applicable. First dating scan (date and location): 05/28/2023. Estimated date of delivery (MATT) from first dating scan: 01/13/2023. The calculations are made using the sonographic MATT of 01/13/2023. TECHNIQUE: Real-time scanning was performed of the fetus, with image documentation and biometric measurements. Endovaginal scanning: Not performed COMPARISON: [facility], OB >= 14 WEEKS FETUS, 11/22/2021, 10:20. FINDINGS: General: A single living intrauterine gestation is present. Presentation: Breech. Placenta: Placental position is posterior, without previa. Amniotic fluid index: 18.9 cm, normal range is 5-24 cm. Single deepest vertical pocket is 5.7 cm. heart rate: 153 beats per minute. Maternal cervical canal: 4.8 cm long. Normal lower limit is 2.5 cm. biometrics: Biparietal diameter: 4.8 centimeters, 20 weeks 4 days Head circumference: 17.9 centimeters, 20 weeks 3 days Abdominal circumference: 14.8 centimeters, 20 weeks 1 day Femur length: 3.1 centimeters, 19 weeks 4 days Clinically estimated gestational age: 20 weeks 2 days Composite gestational age from present scan: 20 weeks 1 day Estimated weight and percentile: 320 grams, 25th percentile Anatomic survey: Neuro: Ventricles are non-dilated at less than 10 mm. Cisterna magna is normal at 3-11 mm. Cerebellum is normal in size and morphology. Nuchal skin fold: Normal at less than 6 mm between 14-21 weeks gestational age. Face: Nose and lips, facial profile are normal. Spine: No evidence for spina bifida. Heart: 4-chambered heart is present, with normal ventricular outflow tracts. Diaphragm: Diaphragm is intact. Stomach: Left-sided stomach is present. Kidneys: No hydronephrosis. Normal is less than 5 mm in 2nd trimester, less than 7 mm in 3rd trimester. Cord: 3-vessel cord has marginal placental insertion, 1.8 centimeters from the internal os. Bladder: Normal in size. Extremities: All 4 extremities identified. IMPRESSION: Single living intrauterine at 20 weeks 2 days, MATT of 01/14/2024. Estimated weight of 320 grams, 25th percentile. Marginal placental cord insertion, 1.8 centimeters from the internal os. Otherwise, normal anatomy survey. We strive to produce accurate, complete, and clear reports of imaging services. To assist us in improving patient care, this report was composed using standard report templates and voice recognition software. Therefore, it may contain abnormal punctuation, insertions and/or omissions. Occasional wrong-word or sound-alike substitutions may occur. Though we review the report and make efforts to correct it, we do recommend that the report be read carefully in proper context to recognize any text inaccuracies. Dictated by: Jefferson Najera M.D. on 08/29/2023 at 14:43 Approved by: Jefferson Najera M.D. on 08/29/2023 at 14:47
== END ==
LOC: US 10:05
PROVIDERS: Referring Provider Student in an Organized Health Care Education/Training Program; Visit Provider Student in an Organized Health Care Education/Training Program
DX: Z34.82 Encounter for supervision of other normal pregnancy, second trimester (principal); Z3A.20 20 weeks gestation of pregnancy
CPT/HCPCS: 76811

== ENCOUNTER → 2023-10-12 09:32 | Outpatient (CLI) | payer OTHER, MEDICAID, SELFPAY ==
[2023-10-12 12:02] LABS: Hematocrit 35.3 % (36-46); Hemoglobin 12.2 g/dL (12.0-16.0)
[2023-10-12 12:35] LABS: GTT (PREG) 1 Hour PP 50gm Dose 93 mg/dL (76-139)
== END ==
LOC: LAB 09:34
PROVIDERS: Referring Provider Obstetrics & Gynecology; Visit Provider Obstetrics & Gynecology
DX: Z34.82 Encounter for supervision of other normal pregnancy, second trimester (principal); Z3A.26 26 weeks gestation of pregnancy
CPT/HCPCS: 36415; 82950; 85014; 85018

== ENCOUNTER → 2023-11-09 09:12 | Outpatient (CLI) | payer OTHER, MEDICAID, SELFPAY ==
--- NOTE | 2023-11-09 09:13 | DI.US.S_ITS ---
PROCEDURE: US OB LIMITED INDICATIONS: SIZE<DATES, MARGINAL CORD INSERTION OUTSIDE/PRIOR DATING DATA: Last menstrual period (LMP): Unknown. LMP-based estimated date of delivery (MATT): Unknown. First dating scan (date and location): 05/28/2023. Estimated date of delivery (MATT) from first dating scan: 01/14/2024. The calculations are made using the ultrasound MATT of 01/14/2024. TECHNIQUE: Real-time scanning was performed of the fetus, with image documentation and biometric measurements. COMPARISON: [facility], OB LIMITED, 03/13/2022, 10:03. [facility], OB >= 14 WEEKS FETUS, 08/29/2023, 10:15. FINDINGS: General: A single living intrauterine gestation is present. Presentation: Vertex. Placenta: Placental position is posterior , without previa. Placental cord insertion measures 3.1-3.7 cm from the placental margin compared to 1.8 cm on prior exam. Amniotic fluid index: 14.3 cm, normal range is 5-24 cm. Single deepest vertical pocket is 8.9 cm. heart rate: 145 beats per minute. Maternal cervical canal: 4.6 cm long. Normal lower limit is 2.5 cm. biometrics: Biparietal diameter: 7.5 cm 29 weeks 6 days Head circumference: 29.1 cm 32 weeks 1 day Abdominal circumference: 27.0 cm 31 weeks 0 days Femur length: 5.6 cm 29 weeks 4 days Composite gestational age from initial scan: 30 weeks 4 days Composite gestational age from present scan: 30 weeks 5 days Estimated weight and percentile: 1606 g 39th percentile Other: Not applicable. IMPRESSION: Single live intrauterine with gestational age of 30 weeks 5 days compared to prior exam. Placental cord insertion measures 3.1-3.7 cm from placental margin compared to 1.8 from prior exam. We strive to produce accurate, complete, and clear reports of imaging services. To assist us in improving patient care, this report was composed using standard report templates and voice recognition software. Therefore, it may contain abnormal punctuation, insertions and/or omissions. Occasional wrong-word or sound-alike substitutions may occur. Though we review the report and make efforts to correct it, we do recommend that the report be read carefully in proper context to recognize any text inaccuracies. Dictated by: Gena Gray M.D. on 11/09/2023 at 15:14 Approved by: Gena Gray M.D. on 11/09/2023 at 15:16
== END ==
LOC: US 09:12
PROVIDERS: Referring Provider Obstetrics & Gynecology; Visit Provider Obstetrics & Gynecology
DX: O43.193 Other malformation of placenta, third trimester (principal); O26.843 Uterine size-date discrepancy, third trimester; Z3A.30 30 weeks gestation of pregnancy
CPT/HCPCS: 76815

== ENCOUNTER → 2023-12-28 10:55 | Outpatient (CLI) | payer OTHER, MEDICAID, SELFPAY ==
[2023-12-29 11:21] LABS: Strep Grp B PCR NEG for Grp B Strep
== END ==
PROVIDERS: Visit Provider Student in an Organized Health Care Education/Training Program
DX: Z34.93 Encounter for supervision of normal pregnancy, unspecified, third trimester (principal); Z36.85 Encounter for antenatal screening for Streptococcus B; Z3A.37 37 weeks gestation of pregnancy
CPT/HCPCS: 87653

== ENCOUNTER 2024-01-07 11:56 | Inpatient (IN) | payer OTHER, MEDICAID, SELFPAY ==
[2024-01-07] MEDS: miSOPROStoL 25 MCG TABLET VAG ×3 (13:19→22:24)
[2024-01-07 13:22] LABS: Add Manual Diff / Slide Review NO; Basophils Absolute Auto 100 /uL (0-100); Basophils Percent Auto 0.5 % (0-2); Eosinophils Absolute Auto 0 /uL (0-450); Eosinophils Percent Auto 0.4 % (2-4); Hemoglobin 12.3 g/dL (12.0-16.0); Lymphocytes Absolute Auto 1800 /uL (1100-4500); Lymphocytes Percent Auto 19.9 % (25-40); Mean Corpuscular HGB Conc 35.3 % (30-36); Mean Corpuscular Hemoglobin 29.8 PG (26-34); Mean Corpuscular Volume 84.5 fL (80-100); Monocytes Absolute Auto 600 /uL (0-900); Monocytes Percent Auto 6.9 % (3-14); Neutrophils Absolute Auto 6700 /uL (1500-7000); Neutrophils Percent Auto 72.3 % (50-75); Platelet Count 273 X10^3/uL (150-400); Red Blood Cell Count 4.14 X10^6/uL (4.0-5.2); Red Cell Distribution Width 13.4 % (11.6-14.8); White Blood Cell Count 9.3 X10^3/uL (4.5-11.0)
[2024-01-07 13:32] VITALS: BP 103/64
--- NOTE | 2024-01-07 14:57 | PM.OBHP.1 ---
OB HPI Date/Time Date of admission: 01/07/24 Date Patient Seen: 01/07/24 Time Patient Seen: 15:06 History of Present Condition Chief complaint: INDUCTION : 5 Para: 3 Estimated Gestational Age (weeks): 39+0 Narrative: Margot Navarrete is a 28 year old female Comments: Admitted today for elective induction of labor. She denies leaking fluid, vaginal bleeding, decreased movement. History of Present care: good care Dating criteria: LMP confirmed by 1st trimester US Ultrasounds: normal mid trimester US Obstetrical complications: none Medical complications: none Narrative: Ultrasound Ultrasound Details:: 05/28/23: ellis intrauterine gestation at 7+0wks (CRL 0.93cm); +FCA; small subchorionic hemorrhage seen; normal appearing uterus, bilateral ovaries, and cervix Anatomy US 08/29/23: normal anatomy, posterior placenta, EFW 25%ile, marginal cord insertion Specific Issues/Plans Marginal cord insertion on anatomy sono--> [x] 3rd trimester growth- 39%ile with cord insertion 3.5cm from placental edge Neg quad screening Varicella NI--> vaccinate Diamanteurvashi Cochran Assigned to Renata Preadmission Labs Blood type: O (+) positive -: Antibody screen: negative, Cystic fibrosis screen: unknown, GBS status: negative, HBsAG: negative, HIV: negative, HSV 1: unknown, HSV 2: unknown and RPR/VDLR: negative -: Chlamydia screen: not detected and Gonorrhea screen: not detected -: Rubella: immune and Varicella: not immune HCT: 35.0 HCAB: negative PAP: Normal Quad screen: Normal 1 hr GTT: 93 Evaluation Evaluation Baseline heart rate: 130 Variability: Moderate (11-25) monitor accelerations: Present Monitor Decelerations: Absent Uterine Contraction Intensity: Mild Status: Category l Dilation (cm): 1 Effacement (%): 0 station: -3 Position of cervix: posterior [facility] Medical History (Updated 11/09/23 @ 16:46 by Corina Yanez DO) Migraine without aura Insomnia secondary to anxiety Vaginal delivery Incomplete miscarriage Surgical History (Updated 05/23/23 @ 09:43 by Ophelia Antonio RN) Hx of dilation and curettage (~12/2017) Family History Mother Gestational diabetes Social History marital status: unmarried,living together (Engaged) number of children: 3 household members: significant other and children lives independently: Yes caregiver/support person: Yes housing: condominium pets and animals: No education level: high school occupational status: unemployed current occupational exposures/hazards: No special janice needs: No travel history: over 6 months ago seatbelt use: always water heater temp set < 120 deg: Yes working smoke detector in home: Yes fire extinguisher in home: Yes carbon monox detector in home: Yes firearms in home: Yes firearms unloaded and locked: Yes do you feel safe at home: Yes Smoking Status: Never smoker second hand exposure: No alcohol intake: former (occasionally when not ) substance use type: does not use during the past year weight has: other (back to pre-baby weight) well-balanced diet: daily or most days daily servings fruits/ve or more times/day caffeine: Yes (AM cup coffee) Type(s) of exercise: walking and regular exercise frequency: 5-6 times per week Meds Home Medications and Allergies Allergies Allergy/AdvReac Type Severity Reaction Status Date / Time No Known Drug Allergies Allergy Verified 01/04/24 08:32 Review of Systems Review of Systems ROS: Yes All systems reviewed with the patient and are negative except as otherwise documented OB Exam Vital signs Blood Pressure: 103/64 Pulse Rate: 95 Temperature: 97.9 F HENMT Head: normal to inspection Resp Effort & Inspection: normal respiratory effort and able to speak in complete sentences Cardio Rate: regular rate Rhythm: regular rhythm Extremities Lower extremity: Yes normal to inspection GI Other: gravid, nontender, nondistended Other: EFW 3700g Objective Labs 01/07/24 13:00 Labs: Laboratory Results - last 24 hr 01/07/24 13:00 WBC 9.3 RBC 4.14 Hgb 12.3 Hct 35.0 L MCV 84.5 MCH 29.8 MCHC 35.3 RDW 13.4 Plt Count 273 Neut % (Auto) 72.3 Lymph % (Auto) 19.9 L Snyder % (Auto) 6.9 Eos % (Auto) 0.4 L Baso % (Auto) 0.5 Neut # (Auto) 6700 Lymph # (Auto) 1800 Snyder # (Auto) 600 Eos # (Auto) 0 Baso # (Auto) 100 Blood Type O Positive Antibody Screen Negative Assessment and Plan Assessment and Plan Assessment and Plan narrative: 28yo at 39+0wks admitted for elective IOL. -CBC, T&S on admission -continuous EFM -epidural PRN -GBS neg, ppx not indicated -PPH risk low -VTE risk low, SCDs with epidural -anticipate L&D Counseling: Common procedures and interventions related to the management of were explained to the patient, including assistance at vaginal delivery with episiotomy, vacuum, or forceps, use of medications to stop premature labor or induce labor, and assessment including auscultation (listening to the heart), use of electronic monitoring (external and / or internal), and use of scalp electrode and/or intrauterine pressure catheter.? It was also explained that approximately 20-30% of mothers have a need for delivery during their labor course. It was explained to the patient that , labor and delivery are ordinarily normal physiological events and can be expected to provide a healthy outcome for mother and baby in the majority of cases. However, there are complications that may arise during , labor, and delivery, such as: hemorrhage requiring administration of blood and/or blood products, surgical intervention, possibly even hysterectomy for life-saving purposes; possibility of infection requiring antibiotics, prolonged hospital stay, and rarely surgical intervention; possibility of blood clots;? possibility of retained products of conception requiring surgical intervention;? possibility of serious tears or injury to the vagina, cervix, perineum, or rectum;? possibility of injury to abdominal structures if delivery is required;? and rarely maternal or may occur. Time-Based Coding :: [30min] spent with patient and on the chart (including review of chart, obtaining history, exam, reviewing outside data, placing orders, documenting exam and treatment plan, and counseling patient) on [01/07/24].
[2024-01-07 15:16] VITALS: BP 103/64; PULSE 95; TEMP 36.6
[2024-01-07] MEDS: ZOLPIDEM 5 MG TABLET PO (22:41)
[2024-01-07] MEDS: LACTATED RINGERS 1,000 ML 100 ML IV (22:50)
--- NOTE | 2024-01-08 00:18 | P.PCN_ITS ---
[facility] <Brittni Garcia, DO - Last Filed: 01/08/24 07:11> Pre-procedure Procedure: Continuous Lumbar Epidural for L&D (with dural puncture) Attending OB provider: Corina Yanez PM/ROS narrative: 28yo at 39w0d for induction, now in labor requesting epidural. See pre- anesthesia evaluation for more details. ASA Class: II Labs: Hct 35.0 % (36-46) L 01/07/24 13:00 Plt Count 273 X10^3/uL (150-400) 01/07/24 13:00 Medications: Current Medications Generic Name Dose Route Start Last Admin Trade Name Freq PRN Reason Stop Dose Admin Acetaminophen 650 mg 01/07/24 12:04 Acetaminophen 325 Mg Tablet PO Q4HR PRN Fever/Mild Pain (1-3) Calcium Carbonate 1,000 mg 01/07/24 21:50 Calcium Carbonate 500 Mg Tab PO Q4HR PRN Dyspepsia Carboprost Tromethamine 250 mcg 01/07/24 21:50 Carboprost 250 Mcg/Ml Ampul IM Q90M PRN Bleeding Diphenhydramine HCl 25 mg 01/08/24 00:16 Diphenhydramine 50 Mg/Ml Vial IV Q10M PRN Pruritis Ephedrine Sulfate 10 mg 01/08/24 00:16 Ephedrine 50 Mg/Ml Vial IV Q5M PRN Blood pressure decrease more than 20% of baseline. Fentanyl 50 mcg 01/07/24 21:50 Fentanyl 100 Mcg/2 Ml Inj IV Q1H PRN Pain, Moderate (4-6) Lactated Ringer's 1,000 mls @ 100 mls/hr 01/07/24 12:15 Lactated Ringers IV CONT TAHIR Oxytocin/Lactated Ringer's 30 unit in 500 mls @ 200 mls/hr 01/07/24 21:50 Oxytocin Premix IV CONT PRN Bleeding Protocol Tranexamic Acid 1,000 mg/ 100 mls @ 600 mls/hr 01/07/24 21:50 Sodium Chloride IV NOW PRN Bleeding FENT 2MCG/ML BUPIV 0.125% EPI 200 mcg in 100 mls @ 6 mls/hr 01/08/24 00:30 Fentanyl/Bupiv/Ns 2mcg/Ml - 0.125% EPIDURAL CONT TAHIR Lidocaine HCl 20 ml 01/07/24 21:50 Lidocaine 1% 20 Ml INJ INTRA-OP PRN Post Delivery Methylergonovine Maleate 0.2 mg 01/07/24 21:50 Methylergonovine 0.2 Mg Tablet PO Q6HR PRN Heavy Bleeding Methylergonovine Maleate 0.2 mg 01/07/24 21:50 Methylergonovine 0.2 Mg/Ml Vial IM NOW PRN Bleeding Metoclopramide HCl 10 mg 01/08/24 00:17 Metoclopramide 10 Mg/2 Ml Inj IV 01/09/24 00:17 Q4H PRN Nausea Misoprostol 25 mcg 01/07/24 12:15 01/07/24 22:24 Misoprostol 25 Mcg Tablet VAG 25 mcg Q4H TAHIR Administration Misoprostol 800 mcg 01/07/24 21:50 Misoprostol 200 Mcg Tablet AK NOW PRN Bleeding Misoprostol 400 mcg 01/07/24 21:50 Misoprostol 200 Mcg Tablet SL NOW PRN Bleeding Nalbuphine HCl 2.5 mg 01/08/24 00:16 Nalbuphine 20 Mg/Ml Ampul IV Q10M PRN Pruritis Naloxone HCl 0.2 mg 01/07/24 21:50 Naloxone 0.4 Mg/Ml Vial IV Q2MIN PRN Opiate Reversal Ondansetron HCl 4 mg 01/07/24 21:50 Ondansetron 4 Mg/2 Ml Inj IV Q4HR PRN Nausea And Vomiting Ondansetron HCl 4 mg 01/08/24 00:17 Ondansetron 4 Mg/2 Ml Inj IV 01/09/24 00:17 Q6HR PRN Nausea Oxytocin 10 unit 01/07/24 21:50 Oxytocin 10 Unit/Ml Vial IM NOW PRN Bleeding Zolpidem Tartrate 5 mg 01/07/24 21:49 01/07/24 22:41 Zolpidem 5 Mg Tablet PO 5 mg BEDTIME PRN Administration Sleep Allergies: Allergies Allergy/AdvReac Type Severity Reaction Status Date / Time No Known Drug Allergies Allergy Verified 01/04/24 08:32 Procedure Insertion date: 01/07/24 Insertion time: 23:50 Prep/Local: 1% lidocaine (Chloraprep) Interspace: L3-4 Patient position: sitting Needle: 18 gauge Jesustead (27g 5 Pencan for dural puncture) Loss of resistance with: saline HALLIE at (cm): 5 Catheter placed at SKIN (cm): 13 Catheter in SPACE (cm): 8 Insertion: No CSF, No Blood, No Paresthesia with insertion, No Paresthesia with injection and No Test dose reaction Initial Medications TEST DOSE time: 23:51 TEST DOSE: 1.5% lidocaine with epinephrine 1:200k (mL): 3 BOLUS DOSE time: 23:52 BOLUS DOSE (mL): 2 BOLUS DOSE med: other (Same as test dose) Infusion INFUSION: 0.125% bupivacaine and with fentanyl 2 mcg/mL Initial rate (mL/hr): 10 Subsequent interventions: 00:11 - Pt reports contraction pain down from 7-8/10 to 4/10. Bolus given through epidural pump, 5 ml, and pump started. KR 00:20 - BP down from low 100s to upper 80s systolic. Treating with ephedrine. Pt with nausea; tracing looks good. Pt denies any contraction pain currently. KR 07:00 - Pt's BP has run in 80s systolic much of the night despite IVF. Pt currently comfortable and not feeling contractions, just cervical pressure. Pt is laying on her side with a ball between her legs, so difficult to assess leg strength; able to move BLE but appears weak, and she admits her upper legs are numb. Pt does admit to mild nausea. Notified RN about pt's nausea. Gave pt another dose of ephedrine, total of 50 mg since epidural placement, and turned infusion down from 10 to 8 ml/hr. Pt is almost complete. Explained to her that I'm decreasing the epidural rate because I want her legs to be stronger when she starts pushing soon and I hope her BP will improve with the lower rate. KR Post-procedure Anesthesia date START: 01/07/24 Anesthesia time START: 23:42 <Angie Ta CRNA - Last Filed: 01/08/24 13:18> Post-procedure Anesthesia date END: 01/08/24 Anesthesia time END: 11:23 Post-procedure Anesthesia Assessment: Yes CV function: HR/BP stable, Yes Resp function: RR/sat/airway adequate, Yes Post-op hydration adequate, Yes Pain control adequate, Yes Nausea & vomiting absent, Yes Temperature > 36 C and Yes Mental status appropriate
[2024-01-08] MEDS: ONDANSETRON 4 MG/2 ML INJ IV ×2 (00:31→07:05)
[2024-01-08] MEDS: OXYTOCIN PREMIX 30 UNIT/500 ML PLAST..BAG IV (03:10)
[2024-01-08] MEDS: LACTATED RINGERS 1,000 ML 100 ML IV (04:31)
[2024-01-08] MEDS: FENT 2MCG/ML BUPIV 0.125% EPI 200 MCG/100 ML PLAST..BAG 6 MCG EPIDURAL (05:22)
--- NOTE | 2024-01-08 08:09 | PM.OBPNLAB ---
Date/Time Date Patient Seen: 01/08/24 Time Patient Seen: 08:09 Pain Control Pain control: epidural Pelvic Exam Dilation (cm): 9 Effacement (%): 100 station: 0 Amniotic membrane status: Bulging Comments: AROM performed, productive of clear/blood tinged fluid Contractions Monitor mode: External Pitocin rate (mU/min): 3 Contraction pattern: Regular Contraction intensity: Strong/Firm Status status: Category l Heart Rate Baseline: 150 Monitor Accelerations: Present Monitor Decelerations: Absent Monitor Variability: Moderate Assessment and Plan Assessment: active labor Plan: continuous present management Comments: 28yo at 39+1wks undergoing elective IOL, progressed well overnight on cytotec and pitocin. Epidural in place, pt comfortable. AROM performed at this time. -anticipate
--- NOTE | 2024-01-08 10:15 | PM.OBPNLAB ---
Date/Time Date Patient Seen: 01/08/24 Time Patient Seen: 10:15 Pain Control Pain control: epidural Pelvic Exam Dilation (cm): 9 Effacement (%): 100 station: 0 Amniotic membrane status: Bulging Contractions Monitor mode: External Pitocin rate (mU/min): 3 Contraction pattern: Regular Contraction intensity: Strong/Firm Status status: Category l Heart Rate Baseline: 150 Monitor Accelerations: Present Monitor Decelerations: Absent Monitor Variability: Moderate Assessment and Plan Assessment: active labor Plan: continuous present management Comments: Pt feeling more constant pressure, thus rechecked. Pt still 9.5/AL on my exam, with position felt to be transverse. -position change to facilitate positioning to OA -recheck in 1-2hrs or sooner as indicated
[2024-01-08] MEDS: METHYLERGONOVINE 0.2 MG/ML VIAL IM (11:36)
--- NOTE | 2024-01-08 11:41 | PM.OBPRVD ---
Labor & Delivery Delivery date: 01/08/24 Cervical ripening method: per misoprostal protocol Induction method: per pitocin protocol Delivery augmentation: rupture of membranes Delivery monitor: external FHT Route of delivery: L&D Laceration Description: None Quantitative Blood Loss: 405 Anesthesia Type: Epidural Complications: none Narrative: The patient progressed to C/C/+2 with pitocin augmentation and epidural anesthesia. After approximately 15min of maternal pushing efforts, the infant delivered in OA position and restituted ROT. The anterior shoulder delivered with gentle downward pressure. The posterior shoulder and rest of body delivered with ease. The cord was doubly clamped and cut after a 60sec delay with the placed on maternal abdomen. The placenta delivered spontaneously and was intact with a 3-vessel cord. The fundus was noted to be firm with bimanual massage and pitocin. Inspection of the cervix, vagina, and perineum revealed no lacerations. During inspection, continued bleeding was noted from the uterus, so one dose of methergine was administered, after which excellent uterine tone was noted with minimal bleeding. All sponges were removed from the vagina. The patient tolerated delivery well and remained in the labor room with the at the bedside. Baby 1: Infant gender: Female Presentation: vertex score (1 min): 9 score (5 min): 9 weight: 7 lb 1 oz Plan for aftercare: Routine care
[2024-01-08] MEDS: IBUPROFEN 600 MG TABLET PO ×2 (12:40→18:58)
[2024-01-08] MEDS: ACETAMINOPHEN 325 MG TABLET 650 MG PO (18:59)
[2024-01-09] MEDS: IBUPROFEN 600 MG TABLET PO ×2 (00:14→06:29)
[2024-01-09] MEDS: ACETAMINOPHEN 325 MG TABLET 650 MG PO ×2 (00:14→06:30)
[2024-01-09 07:00] VITALS: BP 92/51; PULSE 80; RESP 17; TEMP 36.2
--- NOTE | 2024-01-09 07:51 | P.DS_ITS ---
History of Present Illness History of Present Illness Date Patient Seen: 01/09/24 Time Patient Seen: 07:51 Date of Onset of Symptoms: 01/07/24 Chief complaint: L&D Narrative: Pt resting in bed, in crib at bedside. States she is feeling well, pain adequately controlled with minimal oral analgesia, lochia minimal. 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 Pt underwent cervical ripening followed by pitocin augmentation with uncomplicated progression to active labor and then second stage. Uncomplicated second stage, mild uterine atony resolved with IV methergine. Uncomplicated course, pt requested discharge to home on PPD1 meeting all discharge milestones. exclusively, will need varicella immunization. Declines contraception at time of discharge, counseled on risk of escape ovulation as soon as 23d with recommendation for barrier protection with any intimacy. Status at Discharge Cognitive/behavioral status at discharge: oriented Functional status at discharge: independent ambulation Overall status at discharge: patient is back to baseline Time Spent with Patient Time spent: Less than 30 minutes Exam Const General: cooperative and healthy appearing Nutritional Appearance: average body habitus Orientation: alert, awake and oriented x3 Limitations: mental status not altered HENMT Head: normal to inspection Neck Neck: normal visual inspection Chest Chest: normal inspection of the chest Resp Effort & Inspection: normal respiratory effort Cardio Pulses: normal peripheral pulses GI Inspection: normal to inspection Other: fundus firm << umb, non-tender Other: deferred per shared decision making with patient Skin General: no rashes or lesions noted Neuro General: patient alert, patient awake and patient oriented x3 Extrem General: normal to inspection Psych Appearance: grossly normal Judgment: judgment good Objective Labs 01/09/24 08:06 [facility] Medical History (Updated 11/09/23 @ 16:46 by Corina A Renata, DO) Migraine without aura Insomnia secondary to anxiety Vaginal delivery Incomplete miscarriage Surgical History (Updated 05/23/23 @ 09:43 by Ophelia Antonio RN) Hx of dilation and curettage (~12/2017) Family History Mother Gestational diabetes Social History marital status: unmarried,living together (Engaged) number of children: 3 household members: significant other and children lives independently: Yes caregiver/support person: Yes housing: condominium pets and animals: No education level: high school occupational status: unemployed current occupational exposures/hazards: No special janice needs: No travel history: over 6 months ago seatbelt use: always water heater temp set < 120 deg: Yes working smoke detector in home: Yes fire extinguisher in home: Yes carbon monox detector in home: Yes firearms in home: Yes firearms unloaded and locked: Yes do you feel safe at home: Yes Smoking Status: Never smoker second hand exposure: No alcohol intake: former (occasionally when not ) substance use type: does not use during the past year weight has: other (back to pre-baby weight) well-balanced diet: daily or most days daily servings fruits/ve or more times/day caffeine: Yes (AM cup coffee) Type(s) of exercise: walking and regular exercise frequency: 5-6 times per week Discharge Assessment & Plan Assessment and Plan Assessment: 28yo PPD1 s/p of LBFI, doing well exclusively, support PRN varicella non-immune, will need vaccination declines initiation of contraception at time of discharge, appropriately counseled PNL reviewed, as per admission documentation discharge to home today, PPD1 pending clearance per peds Discharge Plan Discharge Plan Patient Disposition: Home Discharge orders & Medications Prescriptions: New acetaminophen 325 mg Tablet 650 mg PO Q6HR PRN (Reason: Pain, Mild (1-3)) Qty: 60 0RF ibuprofen 600 mg Tablet 600 mg PO Q6HR PRN (Reason: Pain, Mild (1-3)) Qty: 60 0RF Follow up/Referrals: Miscellaneous,Doctor, MD [Primary Care Provider] - Visit Report/Discharge Packet Stand Alone Forms: Patient Portal/API, Stroke Signs & Symptoms Discharge Data Primary Care Provider: Miscellaneous,Doctor [facility] PROFEE Charge Codes Discharge inpatient/observation: [id number]
[2024-01-09 08:11] LABS: Hematocrit 30.4 % (36-46); Hemoglobin 10.8 g/dL (12.0-16.0)
[2024-01-09] MEDS: PRENATAL VIT,CALC/IRON/FOLIC 1 TABLET 1 TAB PO (08:55)
[2024-01-09] MEDS: DOCUSATE 100 MG CAPSULE PO (08:55)
== END 2024-01-09 10:29 | disposition home or self-care (01) | DRG 560 ==
PROVIDERS: Admitting Provider Student in an Organized Health Care Education/Training Program; Referring Provider Student in an Organized Health Care Education/Training Program; Visit Provider Student in an Organized Health Care Education/Training Program
DX: O75.89 Other specified complications of labor and delivery (principal); Z3A.38 38 weeks gestation of pregnancy; Z37.0 Single live birth
CPT/HCPCS: 36415; 59050; 59200; 85014; 85018; 85025; 86850; 86900; 86901; G0379; J2210; J2405; J2590

== ENCOUNTER 2024-08-31 08:39 | Emergency (ER) | payer OTHER, SELFPAY ==
[2024-08-31 08:44] VITALS: BP 118/85; PULSE 79; RESP 18; TEMP 36.9; O2SAT 97; BMI 25.9
--- NOTE | 2024-08-31 09:26 | ED.GENADULT ---
HPI - General Adult General Chief complaint: Dental/Oral Stated complaint: Swollen left jaw Time Seen by Provider: 08/31/24 09:18 Source: patient, RN notes reviewed and old records reviewed Mode of arrival: Ambulatory Limitations: no limitations History of Present Illness HPI narrative: 28-year-old female no reported medical issues states she was told she was needs a root canal on her lower jaw went to walk-in clinic yesterday for swelling and pain and was started on Augmentin. Patient had 1 dose last night has not had any additional doses. Patient states was having pain some mild swelling which worsened overnight. She denies fevers. No swelling of the tongue lips or oropharynx. No drainage. She has been told she needs a root canal and tried to set up follow up appointment but office was closed on Sunday. Patient has not appreciate any redness or skin changes on the outside. No cough, she was had some nausea but no vomiting. Denies any other symptoms. Notes that she was currently but in the process of stopping. Patient states no daily medications. No known drug allergies. Does have plan for follow up with Dentistry. No tobacco, occasional alcohol, no recreational drugs. Related Data Previous Rx's Medication Instructions Recorded acetaminophen 325 mg tablet 650 mg (2 x 325 mg) PO Q6HR PRN 01/09/24 Pain, Mild (1-3) #60 tabs ibuprofen 600 mg tablet 600 mg PO Q6HR PRN Pain, Mild 01/09/24 (1-3) #60 tabs norethindrone (contraceptive) 0.35 0.35 mg PO DAILY #84 tabs 02/28/24 mg tablet clindamycin HCl 300 mg capsule 300 mg PO Q6H 10 days #40 caps 08/31/24 Allergies Allergy/AdvReac Type Severity Reaction Status Date / Time No Known Drug Allergies Allergy Verified 01/04/24 08:32 Review of Systems Review of Systems ROS Unobtainable: All systems reviewed & are unremarkable except as noted in HPI and below Patient History Medical History Migraine without aura Insomnia secondary to anxiety Vaginal delivery Incomplete miscarriage Surgical History Hx of dilation and curettage (~12/2017) Family History Mother Gestational diabetes Social History marital status: unmarried,living together (Engaged) number of children: 3 household members: significant other and children lives independently: Yes caregiver/support person: Yes housing: condominium pets and animals: No education level: high school occupational status: unemployed current occupational exposures/hazards: No special janice needs: No travel history: over 6 months ago seatbelt use: always water heater temp set < 120 deg: Yes working smoke detector in home: Yes fire extinguisher in home: Yes carbon monox detector in home: Yes firearms in home: Yes firearms unloaded and locked: Yes do you feel safe at home: Yes Smoking Status: Never smoker second hand exposure: No alcohol intake: former (occasionally when not ) substance use type: does not use during the past year weight has: other (back to pre-baby weight) well-balanced diet: daily or most days daily servings fruits/ve or more times/day caffeine: Yes (AM cup coffee) Type(s) of exercise: walking and regular exercise frequency: 5-6 times per week Smoking Status: Never smoker alcohol intake frequency: a few times a week Exam Narrative Exam Narrative: GEN: well nourished, well appearing female, alert and oriented x 3, patient appears to be in mild distress. HEENT: Atraumatic, pupils are equal round reactive to light, extraocular movements are intact, nares are clear, TMs are clear with no fluid, there is no conjunctival pallor. Throat is clear without any exudates, erythema, tonsillar enlargement or uvular deviation, patient has some swelling of the left lower jaw, no palpable masses or nodules or fluctuant areas. No warmth or erythema. Patient is mildly tender over the lower mandible. Patient has some mild swelling of the gingiva but no clear abscess intraorally. No swelling of the oropharynx. No hoarseness, no stridor no muffled voice. No trismus no difficulty with secretions. No swelling into the neck. HEART: Regular rate and rhythm without murmur, clicks, rubs. LUNGS:Lungs clear to auscultation, no wheezes, rales, crackles, chest moves symmetrically ABD:bowel sounds normal, soft, non-tender, no guarding, rebound, rigidity, no masses noted, no hepatosplenomegaly MSCL: Non-tender, no muscle atrophy, muscles strength 5/5 upper and lower extremities, full range of motion, normal gait NEURO:CN 2-12 intact, sensation normal SKIN: No rash, erythema no petechiae or other skin changes noted. Initial Vital Signs Initial Vital Signs: Vital Signs Temperature 98.4 F 08/31/24 08:44 Pulse Rate 79 08/31/24 08:44 Respiratory Rate 18 08/31/24 08:44 Blood Pressure 118/85 08/31/24 08:44 Pulse Oximetry 97 08/31/24 08:44 Oxygen Delivery Method Room Air 08/31/24 08:44 Course Vital Signs Vital signs: Vital Signs - 8 hr 08/31/24 08:44 Temperature 98.4 F Pulse Rate 79 Respiratory Rate 18 Blood Pressure 118/85 Pulse Oximetry 97 Oxygen Delivery Method Room Air Medical Decision Making MDM Narrative Medical decision making narrative: 28-year-old female who presented to a walk-in clinic for dental pain yesterday has been told she needs a root canal was started on Augmentin has had a single dose last night. Patient presents today with increased swelling overnight. She does have swelling jaw no other red flag symptoms. Discussed with the patient she was only had a single dose last night would have her continue with her Augmentin at this time but we will give a backup prescription. Discussed return precautions if she was having progressing changes and if doing well to continue antibiotics and follow up with dental. Discharge Plan Departure Patient Disposition: Home Clinical Impression: Dental infection Instructions: Tooth Abscess Activity Restrictions/Additional Instructions: Follow up with the dentist. Antibiotics take little bit of time to be effective take your next dose of Augmentin or amoxicillin/clavulanic acid this morning continue regularly. If your symptoms are stable but not improving over the next several days you can switch to the prescription provided today. A printed prescription is included. You can take this medication while . You can take acetaminophen up to a 1000 mg every 6 hours and/or ibuprofen up to 600 mg every 6 hours as needed for pain. Use warm compresses to the affected area for 10 minutes 4 or 5 times daily If you are having rapidly worsening symptoms, fevers, swelling of your lips, tongue, airway any difficulty with speech or swallowing, inability to open your jaw, new redness, area of drainage, vomiting or other new or concerning changes please return to the emergency department. Prescriptions: New clindamycin HCl 300 mg capsule 300 mg PO Q6H 10 Days Qty: 40 0RF No Action norethindrone (contraceptive) 0.35 mg tablet 0.35 mg PO DAILY Qty: 84 3RF acetaminophen 325 mg Tablet 650 mg PO Q6HR PRN (Reason: Pain, Mild (1-3)) Qty: 60 0RF ibuprofen 600 mg Tablet 600 mg PO Q6HR PRN (Reason: Pain, Mild (1-3)) Qty: 60 0RF Referrals: Miscellaneous,Doctor, MD [Primary Care Provider] - Stand Alone Forms: Patient Portal/API/Survey
[2024-08-31 09:54] VITALS: BP 107/79; PULSE 71; RESP 14; O2SAT 98
== END 2024-08-31 09:55 | disposition home or self-care (01) ==
PROVIDERS: Emergency Provider Emergency Medicine
DX: K04.7 Periapical abscess without sinus (principal)
CPT/HCPCS: 99281